=== PATIENT | female | born 1995 | race Caucasian/White ===

== ENCOUNTER 2017-09-12 16:49 | Emergency (ER) | payer OTHER ==
[2017-09-12 17:04] VITALS: BP 154/11
--- NOTE | 2017-09-12 17:18 | EDM.PDOC ---
ED HPI GENERAL MEDICAL PROBLEM - General Chief Complaint: Back Pain or Injury Stated Complaint: Low back pain Time Seen by Provider: 09/12/17 17:05 Source of Information: Reports: Patient, RN Notes Reviewed History Limitations: Reports: No Limitations - History of Present Illness INITIAL COMMENTS - FREE TEXT/NARRATIVE: 22 year old female presents to the ED with complaints of "excruciating" low back pain that radiates into her right leg. Symptoms started after she fell between a toilet and a wall at work today. She says she hit her back on the toilet seat and the wall. She has pain across her entire low back. She reports a history of a herniated disc and says this feels the same. She has no loss of bowel or bladder function. She denies possibility of and says she hasn 't been sexually active in several months. Declines test prior to diagnostics and medications. Lower Back Pain Score (Numeric/FACES): 10 - Related Data Allergies Allergy/AdvReac Type Severity Reaction Status Date / Time amoxicillin [Amoxicillin] Allergy Hives Verified 09/12/17 16:59 Home Meds: Home Meds Verapamil [Calan] 80 mg PO BEDTIME 06/15/15 [History] traZODone 100 mg PO BEDTIME 06/15/15 [History] oxyCODONE HCl/Acetaminophen [Oxycodone-Acetaminophen 5-325] 1 - 2 each PO Q6H PRN #15 tablet 09/12/17 [Rx] predniSONE [Prednisone] 40 mg PO DAILY #10 tablet 09/12/17 [Rx] Past Medical History - Past Health History Medical/Surgical History: Denies Medical/Surgical History Cardiovascular History: Reports: Hypertension Gastrointestinal History: Reports: Inflammatory Bowel Disease Musculoskeletal History: Reports: Fracture Psychiatric History: Reports: Anxiety, Depression Hematologic History: Reports: Anemia Dermatologic History: Reports: Eczema Social & Family History - Tobacco Use Smoking Status *Q: Never Smoker Second Hand Smoke Exposure: No - Caffeine Use Caffeine Use: Reports: None - Alcohol Use Days Per Week of Alcohol Use: 0 - Recreational Drug Use Recreational Drug Use: No Drug Use in Last 12 Months: Yes Recreational Drug Type: Reports: Marijuana/Hashish ED ROS GENERAL - Review of Systems Review Of Systems: See Below Musculoskeletal: Reports: Back Pain Skin: Reports: No Symptoms. Denies: Bruising, Wound ED EXAM,LOWER BACK PAIN/INJURY - Physical Exam Exam: See Below Exam Limited By: No Limitations General Appearance: Alert, WD/WN, No Apparent Distress Respiratory/Chest: No Respiratory Distress, Lungs Clear, Normal Breath Sounds Cardiovascular: Regular Rate, Rhythm Back Exam: Paraspinal Tenderness, Vertebral Tenderness, Other (patient complaints of excruciating pain even with light touch. Her areas of pain change throughout the exam. There is no bruising, redness, or swelling appreciated. ). No: Muscle Spasm Neurological: Alert, Normal Mood/Affect, Normal Dorsiflexion, Normal Plantar Flexion, No Motor/Sensory Deficits. No: Straight Leg Raise (L), Straight Leg Raise (R), Saddle Anesthesia, Difficulty Walking Skin Exam: Warm, Dry, Intact Course - Vital Signs Last Recorded V/S: Last Vital Signs Temp 97.1 F 09/12/17 17:00 Pulse 94 09/12/17 17:00 Resp 18 09/12/17 17:00 BP 154/11 H 09/12/17 17:00 Pulse Ox 100 09/12/17 17:00 - Orders/Labs/Meds Meds: Medications Discontinued Medications Generic Name Dose Route Start Last Admin Trade Name Freq PRN Reason Stop Dose Admin Ketorolac Tromethamine 60 mg 09/12/17 17:53 09/12/17 17:58 Toradol IM 09/12/17 17:54 60 mg ONETIME ONE Administration - Re-Assessments/Exams Free Text/Narrative Re-Assessment/Exam: CT of lumbar spine obtained, read by Dr. Hernandez. Impression: 1. disc herniations at L4-L5 and L5-S1. MRI could be considered. Causes slight central canal stenosis 2. Incidental schmorl node deformities Patient was notified of findings. Will start on prednisone and Percocet. Instructed to f/u with her PCP next week. Educated on return precautions. Departure - Departure Time of Disposition: 18:47 Disposition: Home, Self-Care 01 Condition: Good Clinical Impression: Lumbar herniated disc - Discharge Information Prescriptions: oxyCODONE HCl/Acetaminophen [Oxycodone-Acetaminophen 5-325] 1 - 2 each PO Q6H PRN #15 tablet PRN Reason: Pain predniSONE [Prednisone] 40 mg PO DAILY #10 tablet Referrals: Miya Victoria PA-C [Primary Care Provider] - Forms: ED Department Discharge Additional Instructions: Rest and ice your back No heavy lifting or bending until pain resolves Prednisone 40mg daily for 5 days Percocet 1-2 tabs every 6 hours as needed for pain May take Tylenol 650mg every 4-6 hours as needed for pain during the day Do not exceed 3000mg of Tylenol per day (Percocet contains 325mg of Tylenol) Follow-up with Miya Victoria next week for recheck Return to ER with any new or worsening symptoms
[2017-09-12] MEDS ORDERED: Ketorolac 60 MG/2 ML SDV IM ONE (17:53)
--- NOTE | 2017-09-12 18:20 | CT ---
CT lumbar spine Technique: Multiple axial sections were obtained multiple axial sections were obtained from slightly above the T11-T12 disc through the L5-S1 disc. Reconstructed sagittal and coronal images were reviewed. Comparison: No previous lumbar spine imaging is available. Findings: Scattered Schmorl node deformities are seen. T10-T11 through L3-L4: Scattered Schmorl node deformities are seen. Posterior disks are maintained. No central canal stenosis or neural foraminal stenosis is seen. L4-L5 disc shows a broad-based disc herniation posteriorly which slightly effaces the anterior thecal sac. This disc also shows a slight circumferential disc bulge. This causes minimal central canal stenosis. No neural foraminal stenosis is seen. L5-S1 disc shows a broad-based disc herniation or protrusion posteriorly also causing mild central canal stenosis. There is no neural foraminal stenosis being seen. No fracture is seen. No abnormal subluxation is seen. Impression: 1. Disc herniations at L4-L5 and L5-S1. MRI could be considered to better quantify these disc herniations if any intervention is planned. These disc herniations causes slight central canal stenosis. 2. Incidental Schmorl node deformities. 3. No additional abnormality is appreciated. Diagnostic code #3
== END 2017-09-12 19:04 | disposition home or self-care (01) ==
LOC: JD.ED 16:49
DX: M51.86 Other intervertebral disc disorders, lumbar region (principal); Z88.1 Allergy status to other antibiotic agents; Z79.899 Other long term (current) drug therapy
CPT/HCPCS: 72131; 96372; 99284; J1885

== ENCOUNTER 2018-01-30 05:17 | Emergency (ER) | payer OTHER ==
[2018-01-30 05:31] VITALS: BP 112/80
[2018-01-30] MEDS ORDERED: Ondansetron 4 MG/2 ML SDV IVPUSH ONE ×2 (05:49→06:39)
[2018-01-30] MEDS ORDERED: HYDROmorphone 0.5 MG/0.5 ML SYRINGE IVPUSH ONE ×2 (05:51→07:10)
--- NOTE | 2018-01-30 05:57 | EDM.PDOC ---
<Cj Carpenter - Last Filed: 01/30/18 06:45> ED HPI GENERAL MEDICAL PROBLEM - General Chief Complaint: Abdominal Pain Stated Complaint: ABDOMINAL PAIN LOWER RIGHT SIDE Time Seen by Provider: 01/30/18 05:35 Source of Information: Reports: Patient, Family (Mother) History Limitations: Reports: No Limitations - History of Present Illness INITIAL COMMENTS - FREE TEXT/NARRATIVE: The patient states that she developed sudden-onset sharp pain in her right flank and right lower quadrant around 03 100. The pain is constant and progressively worsening - everything makes the pain worse including movement, and stopping movement also makes the pain worse. Nothing makes the pain better. The patient vomited. No prior similar symptoms. No recent fever, constipation or diarrhea. No urinary symptoms. The patient started her menstrual period yesterday. The patient's last oral solid food was around 18:00 last night. The patient's PCP is Miya Victoria. Right Abdominal Pain Score (Numeric/FACES): 10 - Related Data Allergies Allergy/AdvReac Type Severity Reaction Status Date / Time amoxicillin [Amoxicillin] Allergy Hives Verified 01/30/18 05:25 Home Meds: Home Meds Verapamil [Calan] 80 mg PO BEDTIME 06/15/15 [History] traZODone 100 mg PO BEDTIME 06/15/15 [History] oxyCODONE HCl/Acetaminophen [Oxycodone-Acetaminophen 5-325] 1 - 2 each PO Q6H PRN #15 tablet 09/12/17 [Rx] predniSONE [Prednisone] 40 mg PO DAILY #10 tablet 09/12/17 [Rx] Ondansetron [Zofran] 4 mg BUCCAL Q6H PRN #5 tab 01/30/18 [Rx] oxyCODONE HCl/Acetaminophen [Percocet 5-325 mg Tablet] 1 - 2 each PO Q4H PRN # 20 tablet 01/30/18 [Rx] Past Medical History [employer] History: Reports: Polycystic Ovaries Musculoskeletal History: Reports: Fracture Psychiatric History: Reports: Anxiety, Depression Endocrine/Metabolic History: Reports: Obesity/BMI 30+ Social & Family History - Tobacco Use Smoking Status *Q: Never Smoker Second Hand Smoke Exposure: No - Caffeine Use Caffeine Use: Reports: None - Alcohol Use Alcohol Use History: Yes Days Per Week of Alcohol Use: 0 Alcohol Use Frequency: Rarely - Recreational Drug Use Recreational Drug Use: Yes Drug Use in Last 12 Months: Yes Recreational Drug Type: Reports: Marijuana/Hashish (last smoked Oct 2017) - Living Situation & Occupation Living situation: Reports: Single, Other (with friends) Occupation: Employed (Daycare) ED ROS GENERAL - Review of Systems Review Of Systems: ROS reveals no pertinent complaints other than HPI. ED EXAM, GENERAL - Physical Exam Exam: See Below Exam Limited By: No Limitations General Appearance: Alert, WD/WN, Moderate Distress (emotional) Eye Exam: Bilateral Eye: Normal Inspection Ears: Normal External Exam, Hearing Grossly Normal Nose: Normal Inspection, No Blood Throat/Mouth: Normal Inspection, Normal Lips, Normal Voice, No Airway Compromise Head: Atraumatic, Normocephalic Neck: Normal Inspection, Full Range of Motion Respiratory/Chest: No Respiratory Distress, Lungs Clear, Normal Breath Sounds, No Accessory Muscle Use Cardiovascular: Normal Peripheral Pulses, Regular Rate, Rhythm, No Gallop, No JVD, No Murmur, No Rub Peripheral Pulses: 4+: Radial (L), Radial (R) GI/Abdominal: Soft, No Organomegaly, No Distention, No Abnormal Bruit, No Mass, Tender (Unclear if tender to the far right abdomen, versus pain in the far right abdomen, but not tender), Abnormal Bowel Sounds (diminished), Other (Obese ) (Female) Exam: Deferred Rectal (Female) Exam: Deferred Back Exam: Normal Inspection, Full Range of Motion, CVA Tenderness (L) (Unclear if left CVAT, versus pain in the left flank, but not tender), CVA Tenderness (R ) (Unclear if right CVAT, versus pain in the right flank, but not tender) Extremities: Normal Inspection, Normal Range of Motion, No Pedal Edema, Normal Capillary Refill Neurological: Alert, Oriented, Normal Cognition, No Motor/Sensory Deficits Psychiatric: Anxious Skin Exam: Warm, Dry, Intact, Normal Color, No Rash Course - Vital Signs Last Recorded V/S: Last Vital Signs Temp 36.6 C 01/30/18 05:30 Pulse 70 01/30/18 05:30 Resp 18 01/30/18 05:30 BP 112/80 01/30/18 05:30 Pulse Ox 100 01/30/18 05:30 - Orders/Labs/Meds Orders: Active Orders 24 hr Category Date Time Status Sodium Chloride 0.9% [Normal Saline] 1,000 ml Med 01/30/18 06:00 Active IV ASDIRECTED Sodium Chloride 0.9% [Saline Flush] Med 01/30/18 07:44 Active 10 ml FLUSH ONETIME PRN Medication Orders Sodium Chloride (Normal Saline) 1,000 mls @ 150 mls/hr IV ASDIRECTED DAJA Last Admin: 01/30/18 05:58 Dose: 150 mls/hr Sodium Chloride (Saline Flush) 10 ml FLUSH ONETIME PRN PRN Reason: IV FLUSH Last Admin: 01/30/18 08:03 Dose: 10 ml Labs: Laboratory Tests 01/30/18 01/30/18 01/30/18 Range/Units 05:35 05:35 05:50 WBC 8.09 (3.98-10.04) K/mm3 RBC 4.54 (3.98-5.22) M/mm3 Hgb 10.3 L (11.2-15.7) gm/L Hct 33.5 L (34.1-44.9) % MCV 73.8 L (79.4-94.8) fl MCH 22.7 L (25.6-32.2) pg MCHC 30.7 L (32.2-35.5) g/dl RDW Std Deviation 47.0 H (36.4-46.3) fL Plt Count 255 (182-369) K/mm3 MPV 12.2 (9.4-12.3) fl Neutrophils % (Manual) 68 H (40-60) % Band Neutrophils % 0 (0-10) % Lymphocytes % (Manual) 28 (20-40) % Atypical Lymphs % 0 % Monocytes % (Manual) 2 (2-10) % Eosinophils % (Manual) 2 (0.7-5.8) % Basophils % (Manual) 0 L (0.1-1.2) Platelet Estimate Adequate Hypochromasia Moderate RBC Morph Comment Not Reportable Sodium 137 (136-145) mEq/L Potassium 3.7 (3.5-5.1) mEq/L Chloride 103 (98-107) mEq/L Carbon Dioxide 21 (21-32) mEq/L Anion Gap 16.7 H (5-15) BUN 11 (7-18) mg/dL Creatinine 0.9 (0.55-1.02) mg/dL Est Cr Clr Drug Dosing 86.10 mL/min Estimated GFR (MDRD) > 60 (>60) mL/min BUN/Creatinine Ratio 12.2 L (14-18) Glucose 121 H (74-106) mg/dL Calcium 8.4 L (8.5-10.1) mg/dL Total Bilirubin 0.3 (0.2-1.0) mg/dL AST 38 H (15-37) U/L ALT 61 H (14-59) U/L Alkaline Phosphatase 65 (46-116) U/L Total Protein 7.5 (6.4-8.2) g/dl Albumin 3.3 L (3.4-5.0) g/dl Globulin 4.2 gm/dL Albumin/Globulin Ratio 0.8 L (1-2) Lipase 184 (73-393) U/L Urine Color Yellow (Yellow) Urine Appearance Slt cloudy H (Clear) Urine pH 6.0 (5.0-8.0) Ur Specific [place] > or = 1.030 (1.005-1.030) Urine Protein Trace H (Negative) Urine Glucose (UA) Negative (Negative) Urine Ketones Negative (Negative) Urine Occult Blood 2+ H (Negative) Urine Nitrite Negative (Negative) Urine Bilirubin Negative (Negative) Urine Urobilinogen 0.2 (0.2-1.0) Ur Leukocyte Esterase Negative (Negative) Urine RBC 0-5 (0-5) /hpf Urine WBC 0-5 (0-5) /hpf Ur Epithelial Cells Not seen (0-5) /hpf Urine Bacteria Few (FEW) /hpf Fine Granular Casts 0-5 (0-5) /lpf Urine Mucus Moderate H (FEW) /hpf Urine HCG, Qual (NEGATIVE) 01/30/18 Range/Units 06:20 WBC (3.98-10.04) K/mm3 RBC (3.98-5.22) M/mm3 Hgb (11.2-15.7) gm/L Hct (34.1-44.9) % MCV (79.4-94.8) fl MCH (25.6-32.2) pg MCHC (32.2-35.5) g/dl RDW Std Deviation (36.4-46.3) fL Plt Count (182-369) K/mm3 MPV (9.4-12.3) fl Neutrophils % (Manual) (40-60) % Band Neutrophils % (0-10) % Lymphocytes % (Manual) (20-40) % Atypical Lymphs % % Monocytes % (Manual) (2-10) % Eosinophils % (Manual) (0.7-5.8) % Basophils % (Manual) (0.1-1.2) Platelet Estimate Hypochromasia RBC Morph Comment Sodium (136-145) mEq/L Potassium (3.5-5.1) mEq/L Chloride (98-107) mEq/L Carbon Dioxide (21-32) mEq/L Anion Gap (5-15) BUN (7-18) mg/dL Creatinine (0.55-1.02) mg/dL Est Cr Clr Drug Dosing mL/min Estimated GFR (MDRD) (>60) mL/min BUN/Creatinine Ratio (14-18) Glucose (74-106) mg/dL Calcium (8.5-10.1) mg/dL Total Bilirubin (0.2-1.0) mg/dL AST (15-37) U/L ALT (14-59) U/L Alkaline Phosphatase (46-116) U/L Total Protein (6.4-8.2) g/dl Albumin (3.4-5.0) g/dl Globulin gm/dL Albumin/Globulin Ratio (1-2) Lipase (73-393) U/L Urine Color (Yellow) Urine Appearance (Clear) Urine pH (5.0-8.0) Ur Specific [place] (1.005-1.030) Urine Protein (Negative) Urine Glucose (UA) (Negative) Urine Ketones (Negative) Urine Occult Blood (Negative) Urine Nitrite (Negative) Urine Bilirubin (Negative) Urine Urobilinogen (0.2-1.0) Ur Leukocyte Esterase (Negative) Urine RBC (0-5) /hpf Urine WBC (0-5) /hpf Ur Epithelial Cells (0-5) /hpf Urine Bacteria (FEW) /hpf Fine Granular Casts (0-5) /lpf Urine Mucus (FEW) /hpf Urine HCG, Qual Negative (NEGATIVE) Meds: Medications Generic Name Dose Route Start Last Admin Trade Name Freq PRN Reason Stop Dose Admin Sodium Chloride 1,000 mls @ 150 mls/hr 01/30/18 06:00 01/30/18 05:58 Normal Saline IV 150 mls/hr ASDIRECTED DAJA Administration Sodium Chloride 10 ml 01/30/18 07:44 01/30/18 08:03 Saline Flush FLUSH 10 ml ONETIME PRN Administration IV FLUSH Discontinued Medications Generic Name Dose Route Start Last Admin Trade Name Freq PRN Reason Stop Dose Admin Diatrizoate Meglum/Diatrizoate Sod 90 ml 01/30/18 07:43 01/30/18 08:02 Gastrografin 37% PO 01/30/18 07:44 90 ml ONETIME ONE Administration Diphenhydramine HCl 25 mg 01/30/18 08:41 01/30/18 08:48 Benadryl IVPUSH 01/30/18 08:42 25 mg ONETIME ONE Administration Fentanyl 50 mcg 01/30/18 08:42 01/30/18 08:48 Sublimaze IVPUSH 01/30/18 08:43 50 mcg ONETIME ONE Administration Hydromorphone HCl 0.5 mg 01/30/18 05:51 01/30/18 05:59 Dilaudid IVPUSH 01/30/18 05:52 0.5 mg ONETIME ONE Administration Hydromorphone HCl 1 mg 01/30/18 07:10 01/30/18 07:16 Dilaudid IVPUSH 01/30/18 07:11 1 mg ONETIME ONE Administration Iopamidol 125 ml 01/30/18 07:43 01/30/18 08:02 Isovue-300 (61%) IVPUSH 01/30/18 07:44 125 ml ONETIME ONE Administration Metoclopramide HCl 10 mg 01/30/18 08:42 01/30/18 08:49 Reglan IVPUSH 01/30/18 08:43 10 mg ONETIME ONE Administration Ondansetron HCl 4 mg 01/30/18 05:49 01/30/18 05:59 Zofran IVPUSH 01/30/18 05:50 4 mg ONETIME ONE Administration Ondansetron HCl 4 mg 01/30/18 06:39 01/30/18 06:45 Zofran IVPUSH 01/30/18 06:40 4 mg ONETIME ONE Administration - Re-Assessments/Exams Free Text/Narrative Re-Assessment/Exam: 01/30/18 06:00 Difficult exam. Initially, the patient could only talk to me in whispers, and the patient's mother answered most of my questions, including those related to things that only the patient could say, such as the character of the pain. The patient's mother literally explained to me how the patient's pain would rise, then never receed. On examination, the patient has decreased bowel sounds, and while she indicated that her pain was primarily to the far right side of her abdomen, she also indicated that she was tender when I was palpating as far away as her left upper quadrant. When asked for clarification, she then said that it was not tender to the left side of her abdomen, suprapubic region, or central abdomen. She appears to be tender in the right lower quadrant, far right side of the abdomen, and right upper quadrant, but when I asked specifically if she was tender in these areas versus having pain in those areas without tenderness, she replied "jocy". The same was for examination of her flanks - she indicated that she had both left and right CVA tenderness, but was not able to clarify for me if she actually had tenderness, versus non-tender pain in these areas. The differential includes ureterolithiasis, ruptured ovarian cyst, appendicitis , epiploic appendigitis, mesenteric adenitis, and, potentially, cholecystitis. I have ordered blood work, a urinalysis via quick catheter, and a CT scan of the abdomen and pelvis. The patient asked if it would be possible that she not drink the oral contrast, as it was "gross", however, I explained that it was necessary, and that I would give her an antiemetic. I ordered Dilaudid, Zofran, and IV fluid. 01/30/18 07:[address] Traore, and care of the patient turned over to him at this time, for change of shift. Departure - Departure Disposition: Home, Self-Care 01 Clinical Impression: Renal colic on right side - Discharge Information Prescriptions: Ondansetron [Zofran] 4 mg BUCCAL Q6H PRN #5 tab PRN Reason: nausea or vomiting oxyCODONE HCl/Acetaminophen [Percocet 5-325 mg Tablet] 1 - 2 each PO Q4H PRN # 20 tablet PRN Reason: pain relief. Instructions: Renal Colic, [id number] Referrals: Miya Victoria PA-C [Primary Care Provider] - Forms: ED Department Discharge Additional Instructions: Evaluation the emergency room this morning in regards to development of severe right sided abdominal pain. Associated feeling of need to vomit. Urinalysis showed 2+ blood in the urine. In spite of current menses a CT of the abdomen was performed with IV contrast. This revealed a 2 mm stone at the lower portion of your right ureter. The stone has a proximal be 1 cm travel to get into the urinary bladder which time her pain will be completely relieved. Screen the urine until stone is identified to the past. Is likely to occur within the next 48 hours. Drink plenty of fluids. No calcium added diet. May take Percocet tabs 04/03/25 one or 2 every 4-6 hours as needed for pain relief. Zofran 4 mg under the tongue every 4-6 hours as needed for nausea relief. If you continue to vomit or have further pain then returned to the ED. <Julius Traore - Last Filed: 01/30/18 15:17> Course - Re-Assessments/Exams Free Text/Narrative Re-Assessment/Exam: 01/30/18 07:[address] Carpenter at change of shift. Labs reveal a white count of 8.09 with 60% neutrophils and no bands reported. Hemoglobin is low at 10.3 with hematocrit of 33.5. MCV is low at 73.8 suggesting iron deficiency. Chemistry shows sodium of 137 potassium 3.7. Cord 103 with a bicarbonate 21. Anion gap is 16.7. BUN is 11 with creatinine of 0.9. GFR is greater than 60. Glucose is 121. Calcium is 8.4. Liver function reveals a bilirubin of 0.3 AST of 38 ALT of 61. Alk phosphatase is 65. Lipase is 184. Urinalysis is showing 2+ occult blood but no RBCs on the micro-. No signs of infection. Moderate amount of urine mucus appreciated. Patient is expressing more pain at this time and just started to drink or oral contrast. We will give her Dilaudid 1 mg IV. 01/30/18 08:40 CT of the abdomen and pelvis has been completed. It does identify 2 mm stone at the UVJ on the right side. Ureter is mildly dilated up to the ureter renal pelvis. The kidney itself is showing some mild signs of hydronephrosis. No other abdomen maladies were identified of the fatty liver infiltration. Patient is currently expressing still a fair amount of nausea and pain. Will give her Reglan 10 mg IV and Benadryl 25 mg IV and fentanyl 50 g IV. 01/30/18 09:31 patient is feeling much improved although she remains somewhat drowsy from the medication. She's no longer nauseated has very little discomfort. She was discharged home whenever her mom can come and pick her up. She will screen the urine in the hopes of catching the stone so that she knows that she passed it. Advise a no calcium added diet. - Departure Time of Disposition: 11:00 Condition: Fair
[2018-01-30] MEDS ORDERED: Sodium Chloride 0.9% 1,000 ML IV SCH (06:00)
[2018-01-30] MEDS ORDERED: Diatrizoate Meglumine/Diatrizoate Sodium 37% 120 ML Bottle PO ONE (07:43)
[2018-01-30] MEDS ORDERED: Iopamidol 612 MG/ML 150 ML Bottle IVPUSH ONE (07:43)
[2018-01-30] MEDS ORDERED: Sodium Chloride 0.9% 10 ML Syringe FLUSH PRN (07:44)
--- NOTE | 2018-01-30 08:32 | CT ---
CT abdomen and pelvis Technique: Multiple axial sections were obtained from above the dome of the diaphragm inferiorly through the pubic symphysis. Intravenous contrast was utilized. Minimal oral contrast is seen. Findings: Diminished enhancement of the right kidney is seen as compared to the left side. Slight inflammatory change is seen around the right kidney. Right ureter is minimally prominent in size. There is a small 2 mm calcification at the UVJ suspicious for an obstructing distal right ureteral stone. Visualized lung bases are clear. Fatty infiltration noted within the liver. Gallbladder contains no calcified gallstones. Spleen appears within normal limits. Pancreas appears normal. Aorta shows no aneurysmal dilatation. Gallbladder contains no calcified gallstones. No retroperitoneal adenopathy or mesenteric abnormalities are seen. Appendix is seen which appears normal. No pelvic mass or adenopathy is seen. No free fluid is seen. Bone window settings were reviewed which appears within normal limits for the patient's age. Impression: 1. Abnormal right kidney with what appears to be a small 2 mm calcification at the UVJ suspicious for distal right ureteral obstructing stone. 2. Fatty infiltration within the liver. Diagnostic code #3
[2018-01-30] MEDS ORDERED: diphenhydrAMINE 50 MG/ML SDV IVPUSH ONE (08:41)
[2018-01-30] MEDS ORDERED: fentaNYL 100 MCG/2 ML SDV IVPUSH ONE (08:42)
[2018-01-30] MEDS ORDERED: Metoclopramide 10 MG/2 ML SDV IVPUSH ONE (08:42)
== END 2018-01-30 11:32 | disposition home or self-care (01) ==
LOC: JD.ED 05:17
DX: N23 Unspecified renal colic (principal); E66.9 Obesity, unspecified; Z88.1 Allergy status to other antibiotic agents; Z79.899 Other long term (current) drug therapy
CPT/HCPCS: 36415; 74177; 80053; 81001; 81025; 83690; 85025; 96361; 96374; 96375; 96376; 99284; J1170; J1200; J2405; J2765; J3010; J7040; J7050; Q9963; Q9967

== ENCOUNTER 2018-12-20 12:35 | Emergency (ER) | payer SELFPAY ==
[2018-12-20 12:56] VITALS: BP 146/91
[2018-12-20] MEDS ORDERED: Sodium Chloride 0.9% 1,000 ML IV ONE (13:33)
[2018-12-20] MEDS ORDERED: Sodium Chloride 0.9% 10 ML Syringe FLUSH PRN (13:33)
--- NOTE | 2018-12-20 13:36 | EDM.PDOC ---
ED HPI GENERAL MEDICAL PROBLEM - General Chief Complaint: Abdominal Pain Stated Complaint: ABDOMINAL PAIN - 10 WKS PG Time Seen by Provider: 12/20/18 13:12 Source of Information: Reports: Patient History Limitations: Reports: No Limitations - History of Present Illness INITIAL COMMENTS - FREE TEXT/NARRATIVE: Patient is a 23-year-old female presents ED complaining of generalized abdominal discomfort. Pain has been present since last . Off-and-on with no obvious cause. Pain is described as crampy sensation sharp in nature that comes and goes. She does has a history of IBS and notes that her stool has been hard with episodes of diarrhea with some straining present. She's had prior symptoms as such. In addition she has a history of kidney stones in the past 1 with no similar symptoms as today. She has been eating and drinking as normal. She is 10 weeks and has been evaluated by [employer] specialist with no concerning findings. No ultrasound has been obtained as of yet. She denies any fever, dysuria, dark tarry stools, bloody stools, hematuria, nausea vomiting, recent sick exposures, recent antibiotic use, ingestion of questionable or bad food, or recent out of country travel. She has also noted some increased flatulence which does relieve some of her discomfort. There has been no acid reflux. She has approximately 5 BMs daily. Additional history includes PCOS, fatty liver disease, anxiety and depression. She is currently on no medications except for vitamins. Surgical history includes EGD and colonoscopy with no concerning findings. Abdominal Pain Score (Numeric/FACES): 7 - Related Data Allergies Allergy/AdvReac Type Severity Reaction Status Date / Time amoxicillin [Amoxicillin] Allergy Hives Verified 12/20/18 12:56 Home Meds: Home Meds . [No Known Home Meds] 12/20/18 [History] Past Medical History - Past Health History Medical/Surgical History: Denies Medical/Surgical History Cardiovascular History: Reports: Hypertension Gastrointestinal History: Reports: Inflammatory Bowel Disease PATENT PROSECUTION PARALEGAL History: Reports: Polycystic Ovaries, Musculoskeletal History: Reports: Fracture Psychiatric History: Reports: Anxiety, Depression Endocrine/Metabolic History: Reports: Obesity/BMI 30+ Hematologic History: Reports: Anemia Dermatologic History: Reports: Eczema - Past Surgical History GI Surgical History: Reports: Colonoscopy Social & Family History - Tobacco Use Smoking Status *Q: Never Smoker - Caffeine Use Caffeine Use: Reports: None - Recreational Drug Use Recreational Drug Use: No - Living Situation & Occupation Living situation: Reports: Single, Other (with friends) Occupation: Employed (Daycare) ED ROS GENERAL - Review of Systems Review Of Systems: ROS reveals no pertinent complaints other than HPI. ED EXAM - Physical Exam Exam: See Below Exam Limited By: No Limitations General Appearance: Alert, WD/WN, No Apparent Distress Ears: Hearing Grossly Normal Nose: Normal Inspection Throat/Mouth: Normal Voice, No Airway Compromise Neck: Normal Inspection, Supple Respiratory/Chest: No Respiratory Distress, Lungs Clear, Normal Breath Sounds, No Accessory Muscle Use, Chest Non-Tender Cardiovascular: Normal Peripheral Pulses, Regular Rate, Rhythm, No Murmur GI/Abdominal Exam: Normal Bowel Sounds, Soft, No Organomegaly, No Distention, Tender (generalized discomfort) Back Exam: Normal Inspection. No: CVA Tenderness (L), CVA Tenderness (R) Neurological: Alert, Oriented, CN II-XII Intact, Normal Cognition, No Motor/ Sensory Deficits Psychiatric: Normal Affect, Normal Mood Skin Exam: Warm, Dry, Intact, Normal Color, No Rash Course - Vital Signs Last Recorded V/S: Last Vital Signs Temp 98.7 F 12/20/18 12:53 Pulse 107 H 12/20/18 12:53 Resp 16 12/20/18 12:53 BP 146/91 H 12/20/18 12:53 Pulse Ox 99 12/20/18 12:53 - Orders/Labs/Meds Orders: Active Orders 24 hr Category Date Time Status Peripheral IV Care [RC] . DIRECTED Care 12/20/18 13:33 Active Peripheral IV Insertion Adult [OM.PC] Routine Oth 12/20/18 13:33 Ordered Labs: Laboratory Tests 12/20/18 12/20/18 12/20/18 Range/Units 13:55 13:55 13:55 WBC 12.79 H (3.98-10.04) K/mm3 RBC 4.86 (3.98-5.22) M/mm3 Hgb 10.9 L (11.2-15.7) gm/L Hct 35.0 (34.1-44.9) % MCV 72.0 L (79.4-94.8) fl MCH 22.4 L (25.6-32.2) pg MCHC 31.1 L (32.2-35.5) g/dl RDW Std Deviation 47.9 H (36.4-46.3) fL Plt Count 275 (182-369) K/mm3 MPV 12.3 (9.4-12.3) fl Neutrophils % (Manual) 88 H (40-60) % Band Neutrophils % 0 (0-10) % Lymphocytes % (Manual) 8 L (20-40) % Atypical Lymphs % 0 % Monocytes % (Manual) 4 (2-10) % Eosinophils % (Manual) 0 L (0.7-5.8) % Basophils % (Manual) 0 L (0.1-1.2) Platelet Estimate Adequate Plt Morphology Comment See note Anisocytosis 1+ slight Microcytosis 1+ slight RBC Morph Comment Not Reportable Sodium 139 (136-145) mEq/L Potassium 3.6 (3.5-5.1) mEq/L Chloride 104 (98-107) mEq/L Carbon Dioxide 24 (21-32) mEq/L Anion Gap 14.6 (5-15) BUN 10 (7-18) mg/dL Creatinine 0.7 (0.55-1.02) mg/dL Est Cr Clr Drug Dosing 109.78 mL/min Estimated GFR (MDRD) > 60 (>60) mL/min BUN/Creatinine Ratio 14.3 (14-18) Glucose 106 (74-106) mg/dL Calcium 9.6 (8.5-10.1) mg/dL Total Bilirubin 0.3 (0.2-1.0) mg/dL AST 16 (15-37) U/L ALT 24 (14-59) U/L Alkaline Phosphatase 67 (46-116) U/L C-Reactive Protein 1.8 H* (<1.0) mg/dL Total Protein 7.7 (6.4-8.2) g/dl Albumin 3.2 L (3.4-5.0) g/dl Globulin 4.5 gm/dL Albumin/Globulin Ratio 0.7 L (1-2) Lipase 127 (73-393) U/L HCG, Quant 89684.0 mIU/mL Urine Color (Yellow) Urine Appearance (Clear) Urine pH (5.0-8.0) Ur Specific [place] (1.005-1.030) Urine Protein (Negative) Urine Glucose (UA) (Negative) Urine Ketones (Negative) Urine Occult Blood (Negative) Urine Nitrite (Negative) Urine Bilirubin (Negative) Urine Urobilinogen (0.2-1.0) Ur Leukocyte Esterase (Negative) Urine RBC (0-5) /hpf Urine WBC (0-5) /hpf Ur Epithelial Cells (0-5) /hpf Urine Bacteria (FEW) /hpf Urine Mucus (FEW) /hpf 12/20/18 Range/Units 14:55 WBC (3.98-10.04) K/mm3 RBC (3.98-5.22) M/mm3 Hgb (11.2-15.7) gm/L Hct (34.1-44.9) % MCV (79.4-94.8) fl MCH (25.6-32.2) pg MCHC (32.2-35.5) g/dl RDW Std Deviation (36.4-46.3) fL Plt Count (182-369) K/mm3 MPV (9.4-12.3) fl Neutrophils % (Manual) (40-60) % Band Neutrophils % (0-10) % Lymphocytes % (Manual) (20-40) % Atypical Lymphs % % Monocytes % (Manual) (2-10) % Eosinophils % (Manual) (0.7-5.8) % Basophils % (Manual) (0.1-1.2) Platelet Estimate Plt Morphology Comment Anisocytosis Microcytosis RBC Morph Comment Sodium (136-145) mEq/L Potassium (3.5-5.1) mEq/L Chloride (98-107) mEq/L Carbon Dioxide (21-32) mEq/L Anion Gap (5-15) BUN (7-18) mg/dL Creatinine (0.55-1.02) mg/dL Est Cr Clr Drug Dosing mL/min Estimated GFR (MDRD) (>60) mL/min BUN/Creatinine Ratio (14-18) Glucose (74-106) mg/dL Calcium (8.5-10.1) mg/dL Total Bilirubin (0.2-1.0) mg/dL AST (15-37) U/L ALT (14-59) U/L Alkaline Phosphatase (46-116) U/L C-Reactive Protein (<1.0) mg/dL Total Protein (6.4-8.2) g/dl Albumin (3.4-5.0) g/dl Globulin gm/dL Albumin/Globulin Ratio (1-2) Lipase (73-393) U/L HCG, Quant mIU/mL Urine Color Yellow (Yellow) Urine Appearance Slt cloudy H (Clear) Urine pH 7.0 (5.0-8.0) Ur Specific [place] 1.020 (1.005-1.030) Urine Protein Negative (Negative) Urine Glucose (UA) Negative (Negative) Urine Ketones Negative (Negative) Urine Occult Blood Negative (Negative) Urine Nitrite Negative (Negative) Urine Bilirubin Negative (Negative) Urine Urobilinogen 0.2 (0.2-1.0) Ur Leukocyte Esterase Trace H (Negative) Urine RBC 0-5 (0-5) /hpf Urine WBC 5-10 H (0-5) /hpf Ur Epithelial Cells 20-30 H (0-5) /hpf Urine Bacteria Few (FEW) /hpf Urine Mucus Many H (FEW) /hpf Meds: Medications Discontinued Medications Generic Name Dose Route Start Last Admin Trade Name Freq PRN Reason Stop Dose Admin Sodium Chloride 1,000 mls @ 250 mls/hr 12/20/18 13:33 12/20/18 13:57 Normal Saline IV 12/20/18 17:32 250 mls/hr ONETIME ONE Administration Sodium Chloride 10 ml 12/20/18 13:33 12/20/18 13:55 Saline Flush FLUSH 10 ml ASDIRECTED PRN Administration Keep Vein Open - Re-Assessments/Exams Free Text/Narrative Re-Assessment/Exam: Labs reviewed: White blood cell count 12.79, hemoglobin 10.9 which is low chronic, platelet count 275, MCV is 72, neutrophil percentage is elevated at 88 with no bands, sodium and potassium normal, CO2 normal, AG normal, creatinine normal, glucose normal limits, CRP 1.8, lipase normal, hCG 72,704. Unclear cause of anemia. Suspect iron deficiency. Ultrasound indicated single intrauterine gestation. No complicating process is seen by ultrasound at this point. Patient did not have a positive Leal sign and/or pain along the McBurney's point. I suspect this is related to constipation with her history of stool pattern changes and history of IBS. Treatment will consist of MiraLAX one capful every day with copious amounts of water. Increase fiber in her diet. Follow-up with PCP this coming week for reevaluation. She was instructed to return back to the ED if she develops any new or worsening symptoms. I suspect the cause of her worsening constipation is as of result of being , diet , and vitamins. Departure - Departure Time of Disposition: 15:45 Disposition: DC[facility] 05 Condition: Good Clinical Impression: Generalized abdominal pain, 10 weeks gestation of Constipation Qualifiers: Constipation type: unspecified constipation type Qualified Code(s): K59.00 - Constipation, unspecified IBS (irritable bowel syndrome) Qualifiers: Irritable bowel syndrome type: with both diarrhea and constipation Qualified Code(s): K58.2 - Mixed irritable bowel syndrome - Discharge Information Instructions: High-Fiber Diet, Constipation, Adult, [id number], Diet for Irritable Bowel Syndrome, Abdominal Pain, Adult, [id number], Abdominal Pain During , Probiotics Referrals: Lucy Waller MD [Primary Care Provider] - Forms: ED Department Discharge Additional Instructions: Do not have a exact cause to its causing your on and off abdominal cramping. I suspect it's a combination of IBS, constipation, and being . Thus treatment will consist of MiraLAX one capful every day, increase fiber in her diet, exercise at least 5 days a week and 30 minutes in duration moderate, and drink plenty of water. Please follow up with your PCP's or [facility] specialist this coming week for further evaluation if symptoms persist. Ultrasound of the abdomen did reveal a single uterine to her uterine gestation with a heart rate of 183. Please monitor for any new or worsening symptoms. If so please return back to the ED for further evaluation. - My Orders Last 24 Hours: My Active Orders 12/20/18 13:33 Peripheral IV Care [RC] . DIRECTED Peripheral IV Insertion Adult [OM.PC] Routine - Assessment/Plan Last 24 Hours: My Active Orders 12/20/18 13:33 Peripheral IV Care [RC] . DIRECTED Peripheral IV Insertion Adult [OM.PC] Routine
--- NOTE | 2018-12-20 14:57 | US ---
First trimester obstetrical ultrasound: Multiple real-time images were obtained transvaginally. Comparison: No prior obstetrical ultrasound for current is available. Dates: LMP: LMP given as 10/12/18, PAMELA 07/19/19, gestational age 9 weeks 6 days Current ultrasound: PAMELA 07/17/19, gestational age 10 weeks 1 day Single intrauterine gestation is seen. Amniotic fluid volume is normal. Embryo is identified. No subchorionic hemorrhage is seen. Maternal ovaries appear unremarkable. Measurements: Kaleva-rump length: 3.27 cm - 10 weeks 1 day Heart rate: 183 bpm Impression: 1. Single intrauterine gestation. Dates as noted above. 2. No complicating process is seen by ultrasound at this time. Diagnostic code #1
== END 2018-12-20 16:07 | disposition home or self-care (01) ==
LOC: JD.ED 12:35
DX: O99.611 Diseases of the digestive system complicating pregnancy, first trimester (principal); K58.2 Mixed irritable bowel syndrome; K59.00 Constipation, unspecified; Z3A.10 10 weeks gestation of pregnancy; I10 Essential (primary) hypertension; Z88.1 Allergy status to other antibiotic agents
CPT/HCPCS: 36415; 76817; 80053; 81001; 83690; 84702; 85007; 85027; 86140; 96360; 96361; 99284; J7040

== ENCOUNTER 2019-12-09 19:27 | Emergency (ER) | payer MEDICAID ==
[2019-12-09 19:38] VITALS: BP 132/71; PULSE 86
--- NOTE | 2019-12-09 20:19 | EDM.PDOC ---
ED HPI GENERAL MEDICAL PROBLEM - General Chief Complaint: Abdominal Pain Stated Complaint: SHORT OF BREATH Time Seen by Provider: 12/09/19 20:18 - History of Present Illness INITIAL COMMENTS - FREE TEXT/NARRATIVE: 24-year-old female presents to the emergency room with abdominal pain and shortness of breath. This started about 3 days ago but progressively got worse today. Her pain is worse in the upper right abdomen radiates to her shoulder blade. And it hurts for her to take a deep breath in. She has some stomach upset with this but cannot clearly say that eating makes this worse. She has some intermittent reflux symptoms. She has not had any fevers or chills. She still has her gallbladder. Right Upper Abdomen Pain Score (Numeric/FACES): 10 - Related Data Allergies Allergy/AdvReac Type Severity Reaction Status Date / Time amoxicillin [Amoxicillin] Allergy Hives Verified 12/09/19 19:38 Home Meds: Home Meds Citalopram Hydrobromide [Celexa] 10 mg PO DAILY 05/28/19 [History] Multivitamin [Flintstones] 1 each PO DAILY 05/28/19 [History] Ibuprofen [Motrin] 600 mg PO Q6H PRN tablet 07/03/19 [Rx] Acetaminophen/HYDROcodone [[place] 325-5 MG] 1 tab PO Q4H PRN #15 tablet 12/09/19 [Rx] Lansoprazole [Prevacid] 30 mg PO ASDIRECTED #15 tab.rap.dr 12/09/19 [Rx] Ondansetron [Zofran ODT] 4 mg PO Q6H PRN #10 tab.dis 12/09/19 [Rx] Past Medical History - Past Health History Medical/Surgical History: Denies Medical/Surgical History Cardiovascular History: Reports: Hypertension Gastrointestinal History: Reports: Inflammatory Bowel Disease Genitourinary History: Reports: Renal Calculus [employer] WORK[employer] History: Reports: Polycystic Ovaries, Musculoskeletal History: Reports: Fracture Psychiatric History: Reports: Anxiety, Depression Endocrine/Metabolic History: Reports: Obesity/BMI 30+ Hematologic History: Reports: Anemia Dermatologic History: Reports: Eczema - Past Surgical History GI Surgical History: Reports: Colonoscopy Social & Family History - Family History Family Medical History: Noncontributory - Tobacco Use Smoking Status *Q: Never Smoker Second Hand Smoke Exposure: No - Caffeine Use Caffeine Use: Reports: Coffee, Soda - Recreational Drug Use Recreational Drug Use: No - Living Situation & Occupation Living situation: Reports: Single, Other (with friends) Occupation: Employed (Daycare) ED ROS GENERAL - Review of Systems Review Of Systems: See Below Constitutional: Reports: No Symptoms HEENT: Reports: No Symptoms Respiratory: Reports: Shortness of Breath (Some pain that radiates to her chest to her scapula.) Endocrine: Reports: No Symptoms GI/Abdominal: Reports: Abdominal Pain, Nausea, Vomiting. Denies: Constipation, Diarrhea : Reports: No Symptoms Musculoskeletal: Reports: No Symptoms Skin: Reports: No Symptoms Neurological: Reports: No Symptoms ED EXAM, GI/ABD - Physical Exam Exam: See Below Exam Limited By: No Limitations General Appearance: Alert, No Apparent Distress Head: Atraumatic, Normocephalic Neck: Normal Inspection, Supple, Non-Tender, Full Range of Motion Respiratory/Chest: No Respiratory Distress, Lungs Clear, Normal Breath Sounds Cardiovascular: Regular Rate, Rhythm, No Edema, No Murmur GI/Abdominal Exam: Normal Bowel Sounds, Soft, Other (Patient has significant right upper quadrant discomfort to a slightly lesser degree has significant epigastric discomfort she has some left upper quadrant discomfort but this is fairly mild. No lower abdominal discomfort no rigidity rebound or guarding noted.) Back Exam: Normal Inspection. No: CVA Tenderness (L), CVA Tenderness (R) Course - Vital Signs Last Recorded V/S: Last Vital Signs Temp 36.0 C 12/09/19 19:34 Pulse 86 12/09/19 19:34 Resp 22 H 12/09/19 19:34 BP 132/71 12/09/19 19:34 Pulse Ox 100 12/09/19 19:34 - Orders/Labs/Meds Labs: Laboratory Tests 12/09/19 12/09/19 12/09/19 Range/Units 20:55 21:00 21:00 WBC 11.92 H (3.98-10.04) K/mm3 RBC 5.26 H (3.98-5.22) M/mm3 Hgb 14.3 D (11.2-15.7) gm/dl Hct 44.0 (34.1-44.9) % MCV 83.7 D (79.4-94.8) fl MCH 27.2 (25.6-32.2) pg MCHC 32.5 (32.2-35.5) g/dl RDW Std Deviation 44.3 (36.4-46.3) fL Plt Count 258 D (182-369) K/mm3 MPV 11.7 (9.4-12.3) fl Neut % (Auto) 65.1 (34.0-71.1) % Lymph % (Auto) 25.1 (19.3-51.7) % Baxter % (Auto) 8.0 (4.7-12.5) % Eos % (Auto) 1.1 (0.7-5.8) Baso % (Auto) 0.4 (0.1-1.2) % Neut # (Auto) 7.76 H (1.56-6.13) K/mm3 Lymph # (Auto) 2.99 (1.18-3.74) K/mm3 Baxter # (Auto) 0.95 H (0.24-0.36) K/mm3 Eos # (Auto) 0.13 (0.04-0.36) K/mm3 Baso # (Auto) 0.05 (0.01-0.08) K/mm3 Manual Slide Review Normal smear Sodium 142 (136-145) mEq/L Potassium 3.8 (3.5-5.1) mEq/L Chloride 105 (98-107) mEq/L Carbon Dioxide 25 (21-32) mEq/L Anion Gap 15.8 H (5-15) BUN 11 (7-18) mg/dL Creatinine 0.8 (0.55-1.02) mg/dL Est Cr Clr Drug Dosing 95.25 mL/min Estimated GFR (MDRD) > 60 (>60) mL/min BUN/Creatinine Ratio 13.8 L (14-18) Glucose 90 (74-106) mg/dL Calcium 9.2 (8.5-10.1) mg/dL Total Bilirubin 0.4 (0.2-1.0) mg/dL AST 71 H (15-37) U/L ALT 131 H (14-59) U/L Alkaline Phosphatase 74 (46-116) U/L Total Protein 8.7 H (6.4-8.2) g/dl Albumin 4.0 (3.4-5.0) g/dl Globulin 4.7 gm/dL Albumin/Globulin Ratio 0.9 L (1-2) Lipase 206 (73-393) U/L HCG, Qual (NEGATIVE) Urine Color Yellow (Yellow) Urine Appearance Clear (Clear) Urine pH 6.0 (5.0-8.0) Ur Specific [place] 1.025 (1.005-1.030) Urine Protein Negative (Negative) Urine Glucose (UA) Negative (Negative) Urine Ketones Negative (Negative) Urine Occult Blood 1+ H (Negative) Urine Nitrite Negative (Negative) Urine Bilirubin Negative (Negative) Urine Urobilinogen 0.2 (0.2-1.0) Ur Leukocyte Esterase Negative (Negative) Urine RBC 0-5 (0-5) /hpf Urine WBC 0-5 (0-5) /hpf Ur Squamous Epith Cells 5-10 H (0-5) /hpf Urine Bacteria Rare (FEW) /hpf Urine Mucus Moderate H (FEW) /hpf 12/09/19 Range/Units 21:00 WBC (3.98-10.04) K/mm3 RBC (3.98-5.22) M/mm3 Hgb (11.2-15.7) gm/dl Hct (34.1-44.9) % MCV (79.4-94.8) fl MCH (25.6-32.2) pg MCHC (32.2-35.5) g/dl RDW Std Deviation (36.4-46.3) fL Plt Count (182-369) K/mm3 MPV (9.4-12.3) fl Neut % (Auto) (34.0-71.1) % Lymph % (Auto) (19.3-51.7) % Baxter % (Auto) (4.7-12.5) % Eos % (Auto) (0.7-5.8) Baso % (Auto) (0.1-1.2) % Neut # (Auto) (1.56-6.13) K/mm3 Lymph # (Auto) (1.18-3.74) K/mm3 Baxter # (Auto) (0.24-0.36) K/mm3 Eos # (Auto) (0.04-0.36) K/mm3 Baso # (Auto) (0.01-0.08) K/mm3 Manual Slide Review Sodium (136-145) mEq/L Potassium (3.5-5.1) mEq/L Chloride (98-107) mEq/L Carbon Dioxide (21-32) mEq/L Anion Gap (5-15) BUN (7-18) mg/dL Creatinine (0.55-1.02) mg/dL Est Cr Clr Drug Dosing mL/min Estimated GFR (MDRD) (>60) mL/min BUN/Creatinine Ratio (14-18) Glucose (74-106) mg/dL Calcium (8.5-10.1) mg/dL Total Bilirubin (0.2-1.0) mg/dL AST (15-37) U/L ALT (14-59) U/L Alkaline Phosphatase (46-116) U/L Total Protein (6.4-8.2) g/dl Albumin (3.4-5.0) g/dl Globulin gm/dL Albumin/Globulin Ratio (1-2) Lipase (73-393) U/L HCG, Qual Negative (NEGATIVE) Urine Color (Yellow) Urine Appearance (Clear) Urine pH (5.0-8.0) Ur Specific Down[place] (1.005-1.030) Urine Protein (Negative) Urine Glucose (UA) (Negative) Urine Ketones (Negative) Urine Occult Blood (Negative) Urine Nitrite (Negative) Urine Bilirubin (Negative) Urine Urobilinogen (0.2-1.0) Ur Leukocyte Esterase (Negative) Urine RBC (0-5) /hpf Urine WBC (0-5) /hpf Ur Squamous Epith Cells (0-5) /hpf Urine Bacteria (FEW) /hpf Urine Mucus (FEW) /hpf Meds: Medications Discontinued Medications Generic Name Dose Route Start Last Admin Trade Name Haider PRN Reason Stop Dose Admin Hydrocodone Bitart/Acetaminophen 1 tab 12/09/19 22:22 [place] 325-5 Mg PO 12/09/19 22:23 ONETIME ONE Al Hydroxide/Mg Hydroxide 30 0 ml 12/09/19 21:31 12/09/19 21:48 ml/ Lidocaine HCl 15 ml PO 12/09/19 21:32 45 ml ONETIME ONE Administration Ondansetron HCl 4 mg 12/09/19 22:22 Zofran Odt PO 12/09/19 22:23 ONETIME ONE - Re-Assessments/Exams Free Text/Narrative Re-Assessment/Exam: 12/09/19 22:24 Patient is done fairly well here in the emergency department we did try a GI cocktail and this helped none. Labs reviewed her white count is slightly elevated at just under 12,000. Her transaminases are elevated most consistent with a fatty liver and the patient did mention that she had a fatty liver when I did discuss this with her this is been present since the age of 18. We will put an order in for a gallbladder ultrasound as an outpatient. Patient will be discharged with Melba and Jacqueline. Departure - Departure Time of Disposition: 22:25 Disposition: Home, Self-Care 01 Clinical Impression: Upper abdominal pain - Discharge Information Prescriptions: Acetaminophen/HYDROcodone [[place] 325-5 MG] 1 tab PO Q4H PRN #15 tablet PRN Reason: Abdominal Pain Lansoprazole [Prevacid] 30 mg PO ASDIRECTED #15 tab.rap. Ondansetron [Zofran ODT] 4 mg PO Q6H PRN #10 tab.dis PRN Reason: Nausea/Vomiting Referrals: Radha Mercado MD [Primary Care Provider] - Forms: ED Department Discharge Additional Instructions: Return to the emergency room with any questions problems or worsening symptoms. Use the medication as directed. Follow-up with Dr. Mercado a couple of days after the gallbladder ultrasound is done. Sepsis Event Note - Evaluation Sepsis Screening Result: No Definite Risk - Focused Exam Vital Signs: Vital Signs Temp Pulse Resp BP Pulse Ox 12/09/19 19:34 36.0 C 86 22 H 132/71 100 Date Exam was Performed: 12/09/19 Time Exam was Performed: 22:23
[2019-12-09] MEDS ORDERED: Alum Hydrox/Mag Hydrox/Simeth 30 ML, Lidocaine 2% 15 ML PO ONE ×2 (21:31)
--- NOTE | 2019-12-09 22:13 | CR ---
Chest: Portable view of the chest was obtained. Comparison: No prior chest imaging is available. Heart size and mediastinum are normal. Lungs are clear. Bony structures are grossly intact. Impression: 1. Nothing acute is seen on portable chest x-ray. Diagnostic code #1 This report was dictated in [place] Standard Time
[2019-12-09] MEDS ORDERED: Acetaminophen/HYDROcodone 325-5 MG Tab PO ONE (22:22)
[2019-12-09] MEDS ORDERED: Ondansetron 4 MG Tab.DIS PO ONE (22:22)
== END 2019-12-09 22:44 | disposition home or self-care (01) ==
LOC: JD.ED 19:27
DX: R10.11 Right upper quadrant pain (principal); R06.02 Shortness of breath; I10 Essential (primary) hypertension; E66.9 Obesity, unspecified; Z68.43 Body mass index [BMI] 50.0-59.9, adult; Z79.899 Other long term (current) drug therapy; Z88.0 Allergy status to penicillin
CPT/HCPCS: 36415; 71045; 80053; 81001; 83690; 84703; 85025; 99285; A9270; 99283

== ENCOUNTER → 2019-12-17 | Day surgery (SDC) | payer MEDICAID ==
[~2019-12-17] MED LIST: Bupivacaine 0.5%/EPINEPHrine 1:200,000 50 ML MDV ONE; Dexamethasone 4 MG/ML 5 ML MDV ONE; HYDROmorphone 0.5 MG/0.5 ML Syringe IVPUSH PRN; Ketamine 500 mg/10 ML MDV ONE; Ketorolac 30 MG/ML SDV ONE; Lactated Ringers 1,000 ML IV SCH; Lidocaine 1% 4 ML ONE; Lidocaine 1%/Sod Bicarbonate in NS 8.4% 1 ML Syringe IDERM PRN; Morphine 10 MG/ML SDV ONE; Neostigmine Methylsulfate 1 MG/ML 5 ML Syringe ONE; Ondansetron 4 MG/2 ML SDV IVPUSH PRN; Ondansetron 4 MG/2 ML SDV ONE; Propofol 200 MG/20 ML SDV ONE; Rocuronium 100 MG/10 ML MDV ONE; Sodium Chloride 0.9% 10 ML Syringe FLUSH PRN; fentaNYL 100 MCG/2 ML SDV IVPUSH PRN; fentaNYL 250 MCG/5 ML SDV ONE; oxyCODONE 5 MG Tab PO PRN
--- NOTE | 2019-12-17 12:52 | PCM.PREANE ---
Preanesthetic Assessment - Procedure Proposed Procedure: Laparoscopic cholecystectomy - Anesthesia/Transfusion/Family Hx Anesthesia History: Prior Anesthesia Without Reaction Family History of Anesthesia Reaction: No Transfusion History: No Prior Transfusion(s) Intubation History: Unknown Additional History: No previous history of intubation. Colonoscopy without concerns. - Review of Systems General: No Symptoms Pulmonary: No Symptoms Cardiovascular: No Symptoms Gastrointestinal: Abdominal Pain, Other (high BMI) Neurological: No Symptoms Other: Reports: None - Physical Assessment NPO Status Date: 12/17/19 NPO Status Time: 00:00 Vital Signs: Last Vital Signs Temp 36.2 C 12/17/19 11:40 Pulse 99 12/17/19 11:50 Resp 16 12/17/19 11:40 BP 113/99 H 12/17/19 11:50 Pulse Ox 98 12/17/19 11:40 Height: 5 ft 4 in Weight: 133.356 kg ASA Class: 2E Mental Status: Alert & Oriented x3 Airway Class: Mallampati = 2 Dentition: Reports: Normal Dentition Thyro-Mental Finger Breadths: 3 Mouth Opening Finger Breadths: 3 ROM/Head Extension: Full Lungs: Clear to Auscultation, Normal Respiratory Effort Cardiovascular: Regular Rate, Regular Rhythm - Lab Values: Laboratory Last Values Urine HCG, Qual Negative (NEGATIVE) 12/17/19 11:38 - Allergies Allergies/Adverse Reactions: Allergies Allergy/AdvReac Type Severity Reaction Status Date / Time amoxicillin [Amoxicillin] Allergy Hives Verified 12/09/19 19:38 - Acknowledgements Anesthesia Type Planned: General Anesthesia Pt an Appropriate Candidate for the Planned Anesthesia: Yes Alternatives and Risks of Anesthesia Discussed w Pt/Guardian: Yes Pt/Guardian Understands and Agrees with Anesthesia Plan: Yes PreAnesthesia Questionnaire - Past Health History Medical/Surgical History: Denies Medical/Surgical History HEENT History: Reports: Impaired Vision Cardiovascular History: Reports: Hypertension Respiratory History: Reports: None Gastrointestinal History: Reports: Fatty Liver, Irritable Bowel Syndrome Genitourinary History: Reports: Renal Calculus [employer] CHIEF History: Reports: Musculoskeletal History: Reports: Fracture Other Musculoskeletal History: Right ankle fracture Neurological History: Reports: None Psychiatric History: Reports: Depression Endocrine/Metabolic History: Reports: None Hematologic History: Reports: None Immunologic History: Reports: None Oncologic (Cancer) History: Reports: None Dermatologic History: Reports: Eczema - Past Surgical History Head Surgeries/Procedures: Reports: None HEENT Surgical History: Reports: None Cardiovascular Surgical History: Reports: None Respiratory Surgical History: Reports: None GI Surgical History: Reports: Colonoscopy, EGD Female Surgical History: Reports: None Endocrine Surgical History: Reports: None Neurological Surgical History: Reports: None Musculoskeletal Surgical History: Reports: None Oncologic Surgical History: Reports: None Dermatological Surgical History: Reports: None - SUBSTANCE USE Smoking Status *Q: Never Smoker Second Hand Smoke Exposure: No Recreational Drug Use History: No - HOME MEDS Home Medications: Home Meds Citalopram Hydrobromide [Celexa] 10 mg PO DAILY 05/28/19 [History] Multivitamin [Flintstones] 1 each PO DAILY 05/28/19 [History] Ibuprofen [Motrin] 600 mg PO Q6H PRN tablet 07/03/19 [Rx] Acetaminophen/HYDROcodone [[place] 325-5 MG] 1 tab PO Q4H PRN #15 tablet 12/09/19 [Rx] Lansoprazole [Prevacid] 30 mg PO ASDIRECTED #15 tab.rapShashankdr 12/09/19 [Rx] Ondansetron [Zofran ODT] 4 mg PO Q6H PRN #10 tab.dis 12/09/19 [Rx] - CURRENT (IN HOUSE) MEDS Current Meds: Current Medications Lactated Ringer's (Ringers, Lactated) 1,000 mls @ 125 mls/hr IV ASDIRECTED DAJA Stop: 12/17/19 23:00 Lidocaine/Sodium Bicarbonate (Buffered Lidocaine 1% In Ns 8.4%) 0.25 ml IDERM ONETIME PRN PRN Reason: Prior to IV Start Stop: 12/17/19 18:00 Sodium Chloride (Saline Flush) 10 ml FLUSH ASDIRECTED PRN PRN Reason: Keep Vein Open Stop: 12/17/19 18:00 Discontinued Medications Bupivacaine HCl/Epinephrine Bitart (Marcaine 0.5%/Epinephrine 1:200,000) Confirm Administered Dose 50 ml .ROUTE .STK-MED ONE Stop: 12/17/19 12:05 Dexamethasone (Dexamethasone) Confirm Administered Dose 20 mg .ROUTE .STK-MED ONE Stop: 12/17/19 12:07 Fentanyl (Sublimaze) Confirm Administered Dose 250 mcg .ROUTE .STK-MED ONE Stop: 01/16/20 12:07 Lidocaine HCl (Xylocaine-Mpf 1%) Confirm Administered Dose 4 mls @ as directed .ROUTE .STK-MED ONE Stop: 12/17/19 12:07 Ketorolac Tromethamine (Toradol) Confirm Administered Dose 30 mg .ROUTE [facility] [employer] ONE Stop: 12/17/19 12:07 Ondansetron HCl (Zofran) Confirm Administered Dose 4 mg .[facility]TE [facility] Stop: 12/17/19 12:07 Propofol (Diprivan 20 Ml) Confirm Administered Dose 400 mg .[facility]OUTE [facility] Stop: 12/17/19 12:07 Rocuronium [place] (Zemuron) Confirm Administered Dose 100 mg .ROUTE [facility] Stop: 12/17/19 12:07
--- NOTE | 2019-12-17 13:55 | PCM.POSTAN ---
POST ANESTHESIA ASSESSMENT - MENTAL STATUS Mental Status: Alert, Oriented - VITAL SIGNS Vital Signs: Last Vital Signs Temp 36.2 C 12/17/19 11:40 Pulse 99 12/17/19 11:50 Resp 16 12/17/19 11:40 BP 113/99 H 12/17/19 11:50 Pulse Ox 98 12/17/19 11:40 - RESPIRATORY Respiratory Status: Respiratory Rate WNL, Airway Patent (Patient came to PACU with NPA. Started to have mild laryngospasm that needed additional reversal with sugammadex. Resolved with total paralytic reversal.), O2 Saturation Stable - CARDIOVASCULAR CV Status: Pulse Rate WNL, Blood Pressure Stable - GASTROINTESTINAL GI Status: No Symptoms - PAIN Pain Score: 8 - POST OP HYDRATION Hydration Status: Adequate & Stable - OBSERVATIONS Free Text/Narrative:: Extubation in OR. Patient had "hiccups" that developed into a mild larygospasm that resolved easily with PPV. Placed NPA to limit obstruction to good effect. Transferred to PACU with NPA and HOB > 30 degree. Initially upon arrival patient was somnolent and breathing well, then as I was giving report she started to laryngospasm again. Used sugammadex to give complete reversal with nearly instant resolution and improved gas exchange. No concerns after paralytic reversal. NPA was removed.
--- NOTE | 2019-12-17 13:58 | PCM.PRNOTE ---
- Free Text/Narrative Note: Operative Report Operation: laparoscopic cholecystectomy Date: 12/17/2019 Attending Surgeon: Hugo Tsai MD Indication for Surgery: right upper quadrant pain, positive Leal sign Preoperative antibiotics: 3 g Ancef IV VTE prophylaxis: SCDs Estimated Blood Loss: 10 cc Findings: relatively normal looking gallbladder. Critical view of safety established. Small puncture injury to right lobe of liver from Veress entry, hemostatic at conclusion of case. Detailed Report: The patient underwent general endotracheal anesthesia after being placed supine on the operating table and initial timeout. The abdomen was prepped and draped in sterile fashion. A pre-incision timeout was performed confirming the patient s identity and the operation to be performed. A Veress needle was inserted into the abdominal cavity below the left costal margin along the mid-clavicular line. It was difficult to properly place the Veress based on abnormal readings on the insufflation machine; after a few attempts at placement it was determined that the setting for the insufflator was for a pediatric case. Once this was remedies insufflation was straightforward. The abdomen was insufflated with CO2 to 15 mm Hg. Gas was aspirated below the umbilicus with a syringe in order to ensure safe placement of a 5 mm bladed laparoscopic port. The 5mm 30 degree laparoscope was then inserted and viscera inspected. There was some air insufflated into the omentum, and there was a single puncture site at the left lobe of the liver with minimal associated hemorrhage. The gallbladder appeared fairly normal but did have some omental adhesions. Two additional 5 mm ports were placed along the right subcostal region under direct vision with the laparoscope, and a 12 mm port was placed at the subxiphoid region. The gallbladder was grasped at the fundus with a locking grasper and retracted anteriorly and superiorly, exposing the infundibulum. This was grasped with the surgeons left hand grasper and retracted laterally. The hook electrode was used to open the overlying peritoneum, and this plane of dissection was developed along the edges of the gallbladder at its interface with the liver bed. A combination of hook electrode, blunt dissection with the suction storage receipt poster, and the [place] grasper were used to carefully expose and skeletonize the cystic duct and artery. A critical view of safety was obtained. Clips were then placed on both structures. The duct and artery were transected with laparoscopic scissors between the hemolock clips. The hook was then used to dissect the gallbladder free from its attachment to the liver. The specimen was then placed in an Endocatch bag and removed through the subxiphoid port. The liver bed was inspected and appeared hemostatic. The larger subxiphoid port was closed at the level of the fascia with vicryl suture using the PMI laparoscopic suture passer. Pneumoperitoneum was then released. All skin incisions were then closed with placement of subcuticular vicryl suture and dressed with dermabond. A total of 30 cc 1% lidocaine with epinephrine was used for local anesthesia at the incision sites. The patient tolerated the operation well, was extubated in the operating room and transferred to the PACU for routine post-anesthesia care. Hugo Tsai MD General Surgery
[2019-12-17 16:05] VITALS: PULSE 78
[2019-12-17 17:25] VITALS: BP 131/89
== END | disposition home or self-care (01) ==
LOC: JD.SDS 11:25
PROVIDERS: ATTEND Surgery
DX: K80.10 Calculus of gallbladder with chronic cholecystitis without obstruction (principal); I10 Essential (primary) hypertension; E78.00 Pure hypercholesterolemia, unspecified; F41.9 Anxiety disorder, unspecified; F32.9 Major depressive disorder, single episode, unspecified; G43.909 Migraine, unspecified, not intractable, without status migrainosus; E66.01 Morbid (severe) obesity due to excess calories; Z68.43 Body mass index [BMI] 50.0-59.9, adult; Z88.0 Allergy status to penicillin; Z79.899 Other long term (current) drug therapy
CPT/HCPCS: 00790; 81025; A9270-GY; J1100; J1885; J2001; J2270; J2405; J2704; J2710; J3010; J3490; J7120

== ENCOUNTER 2020-11-15 09:01 | Emergency (ER) | payer MEDICAID ==
[2020-11-15] MEDS ORDERED: Ondansetron 4 MG/2 ML SDV IVPUSH ONE (09:39)
--- NOTE | 2020-11-15 09:41 | EDM.PDOC ---
ED HPI GENERAL MEDICAL PROBLEM - General Chief Complaint: Gastrointestinal Problem Stated Complaint: FEVER,BODY ACHES,VOMITING AND DIARRHEA Time Seen by Provider: 11/15/20 09:38 Source of Information: Reports: Patient History Limitations: Reports: No Limitations - History of Present Illness INITIAL COMMENTS - FREE TEXT/NARRATIVE: 25-year-old female presents to the ED with a history of recurrent nausea vomiting and diarrhea for about 6 days. Diarrhea stools she reports can be up to 20 times per day. She has a dental infection at present and is currently not on antibiotic therapy and has not been on antibiotics in the last 6 weeks. She states she did keep down a small amount of water this morning. She denies any possibility of . She states her cycles are somewhat irregular. She was on Depo-Provera and she was due for repeat Depo-Provera shot first part of November which she missed. She has been spotting lightly per vagina since that time. Occasional abdominal cramps. She has had her gallbladder removed in the past and states she is almost always had mild diarrhea patterns. Denies any blood in the diarrhea. No blood in the emesis. She feels weak and dizzy and lightheaded upon standing. Try to go to work this morning but was unable to continue. No known exposure to COVID-19 illness and she has been checked twice in the last week including yesterday with test being negative. She denies cough or sputum production. No noted fever but has had some mild chills. Denies sore throat. To her knowledge did not get into any known bad food. Onset: Today, Sudden Onset Date: 11/09/20 Duration: Day(s):, Getting Worse Location: Reports: Abdomen (Recurrent nausea and vomiting associate with diarrhea.) Quality: Reports: Other Severity: Mild (Occasional abdominal cramping pain) Improves with: Reports: None Worsens with: Reports: Eating (Eating makes things much worse.) Context: Reports: Other (Spontaneous occurrence.). Denies: Activity, Exercise, Sick Contact, Trauma Associated Symptoms: Reports: Fever/Chills, Loss of Appetite, Malaise, Nausea/Vomiting, Weakness, Other. 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.) Abdomen Pain Score (Numeric/FACES): 4 - Related Data Allergies Allergy/AdvReac Type Severity Reaction Status Date / Time amoxicillin [Amoxicillin] Allergy Hives Verified 11/15/20 09:26 Home Meds: Home Meds Citalopram Hydrobromide [Celexa] 10 mg PO DAILY 05/28/19 [History] Ciprofloxacin HCl [Cipro] 500 mg PO BID #12 tablet 11/15/20 [Rx] Dicyclomine [Bentyl] 20 mg PO Q6H PRN #8 tablet 11/15/20 [Rx] Past Medical History - Past Health History Medical/Surgical History: Denies Medical/Surgical History HEENT History: Reports: Impaired Vision Cardiovascular History: Reports: Hypertension Respiratory History: Reports: None Gastrointestinal History: Reports: Fatty Liver, Irritable Bowel Syndrome Genitourinary History: Reports: Renal Calculus [employer] TECHNICIAN History: Reports: Polycystic Ovaries, Musculoskeletal History: Reports: Fracture Other Musculoskeletal History: Right ankle fracture Neurological History: Reports: None Psychiatric History: Reports: Depression Endocrine/Metabolic History: Reports: Obesity/BMI 30+ Hematologic History: Reports: Anemia Immunologic History: Reports: None Oncologic (Cancer) History: Reports: None Dermatologic History: Reports: Eczema - Past Surgical History GI Surgical History: Reports: Cholecystectomy, Colonoscopy, EGD Social & Family History - Family History Family Medical History: No Pertinent Family History - Tobacco Use Tobacco Use Status *Q: Never Tobacco User - Caffeine Use Caffeine Use: Reports: Soda - Recreational Drug Use Recreational Drug Use: Yes Recreational Drug Type: Reports: Marijuana/Hashish - Living Situation & Occupation Living situation: Reports: Single, Other (with friends) Occupation: Employed (Daycare) ED [facility] - Review of Systems Review Of Systems: See Below Constitutional: Reports: Chills, Malaise, Weakness, Fatigue, Decreased Appetite. Denies: Fever HEENT: Reports: Glasses Respiratory: Reports: No Symptoms Cardiovascular: Reports: No Symptoms Endocrine: Reports: Fatigue GI/Abdominal: Reports: Abdominal Pain, Diarrhea (Area she reports up to 20 times per day with no blood.), Nausea ( Loose watery and slightly yellow.), Vomiting (Treatment nausea and vomiting of bilious material.). Denies: Stool Incontinence : Reports: No Symptoms Musculoskeletal: Reports: No Symptoms Skin: Reports: No Symptoms Neurological: Reports: Dizziness, Weakness. Denies: Pre-Existing Deficit, Seizure, Tingling Psychiatric: Reports: Depression (History of depression controlled with) Hematologic/Lymphatic: Reports: No Symptoms Immunologic: Reports: No Symptoms ( citalopram) ED EXAM, GI/ABD - Physical Exam Exam: See Below Exam Limited By: No Limitations General Appearance: Alert, WD/WN, No Apparent Distress, Other (Temperature is 36.4 heart rate 132 and sinus at the bedside respiratory is 18 with O2 sats of 98% room air BP 121 102.) Eyes: Bilateral: Normal Appearance (No scleral icterus or blepharal pallor.) Nose: Normal Inspection Throat/Mouth: Other (Tongue is dry and coated.) Head: Atraumatic, Normocephalic Neck: Normal Inspection, Supple, Non-Tender, Full Range of Motion. No: Lymphadenopathy (L), Lymphadenopathy (R) Respiratory/Chest: No Respiratory Distress, Lungs Clear, Normal Breath Sounds, No Accessory Muscle Use Cardiovascular: Normal Peripheral Pulses, Regular Rate, Rhythm, No Edema, No Gallop, No Murmur, No Rub GI/Abdominal Exam: Normal Bowel Sounds, Soft, Non-Tender, No Organomegaly, No Mass, Pelvis Stable. No: Guarding, Rigid, Rebound, Tender (Female) Exam: Other (Occasional spotting per vagina since missing her Depo- Medrol repeat shot 01 November.) Back Exam: Normal Inspection, Full Range of Motion. No: CVA Tenderness (L), CVA Tenderness (R) Extremities: Normal Inspection, Normal Range of Motion, Non-Tender, No Pedal Edema Neurological: Alert, Oriented, CN II-XII Intact, Normal Cognition, Normal Gait Psychiatric: Normal Affect, Normal Mood Skin Exam: Warm, Dry, Intact, Normal Color, No Rash Course - Vital Signs Last Recorded V/S: Last Vital Signs Temp 36.4 C 11/15/20 09:21 Pulse 94 11/15/20 13:30 Resp 16 11/15/20 13:30 BP 124/80 11/15/20 13:30 Pulse Ox 100 11/15/20 13:30 - Orders/Labs/Meds Orders: Active Orders 24 hr Category Date Time Status FECAL LACTOFERRIN [MREF] Stat Lab 11/15/20 11:55 Received STOOL CULTURE/SHIGA TOXIN [MREF] Stat Lab 11/15/20 11:55 Received WBC, STOOL [OP] Stat Lab 11/15/20 11:58 Ordered Dextrose 5%-0.9% NaCl [Dextrose 5%-Normal Saline] 1,000 Med 11/15/20 12:00 Active ml IV ASDIRECTED Lactated Ringers [Ringers, Lactated] 1,000 ml Med 11/15/20 09:45 Active IV ASDIRECTED Medication Orders Lactated Ringer's (Ringers, Lactated) 1,000 mls @ 999 mls/hr IV ASDIRECTED DAJA Last Admin: 11/15/20 10:06 Dose: 999 mls/hr Documented by: MARLIN Dextrose/Sodium Chloride (Dextrose 5%-Normal Saline) 1,000 mls @ 150 mls/hr IV ASDIRECTED DAJA Last Admin: 11/15/20 12:17 Dose: 150 mls/hr Documented by: MARLIN Labs: Laboratory Tests 11/15/20 11/15/20 11/15/20 Range/Units 09:40 10:04 10:04 WBC 7.40 (3.98-10.04) K/mm3 RBC 5.00 (3.98-5.22) M/mm3 Hgb 14.1 (11.2-15.7) gm/dl Hct 42.0 (34.1-44.9) % MCV 84.0 (79.4-94.8) fl MCH 28.2 (25.6-32.2) pg MCHC 33.6 (32.2-35.5) g/dl RDW Std Deviation 45.1 (36.4-46.3) fL Plt Count 153 L D (182-369) K/mm3 MPV 12.4 H (9.4-12.3) fl Neut % (Auto) 37.7 (34.0-71.1) % Lymph % (Auto) 50.5 (19.3-51.7) % [place] % (Auto) 8.5 (4.7-12.5) % Eos % (Auto) 0.9 (0.7-5.8) Baso % (Auto) 1.9 H (0.1-1.2) % Neut # (Auto) 2.78 (1.56-6.13) K/mm3 Lymph # (Auto) 3.74 (1.18-3.74) K/mm3 [place] # (Auto) 0.63 H (0.24-0.36) K/mm3 Eos # (Auto) 0.07 (0.04-0.36) K/mm3 Baso # (Auto) 0.14 H (0.01-0.08) K/mm3 Manual Slide Review Normal smear Sodium (136-145) mEq/L Potassium (3.5-5.1) mEq/L Chloride (98-107) mEq/L Carbon Dioxide (21-32) mEq/L Anion Gap (5-15) BUN (7-18) mg/dL Creatinine (0.55-1.02) mg/dL Est Cr Clr Drug Dosing mL/min Estimated GFR (MDRD) (>60) mL/min BUN/Creatinine Ratio (14-18) Glucose (74-106) mg/dL Hemoglobin A1c 6.00 (4.50-6.20) % Calcium (8.5-10.1) mg/dL Magnesium (1.8-2.4) mg/dl Ferritin (8-252) ng/ml Total Bilirubin (0.2-1.0) mg/dL AST (15-37) U/L ALT (14-59) U/L Alkaline Phosphatase (46-116) U/L Lactate Dehydrogenase (81-234) U/L C-Reactive Protein (<1.0) mg/dL Total Protein (6.4-8.2) g/dl Albumin (3.4-5.0) g/dl Globulin gm/dL Albumin/Globulin Ratio (1-2) HCG, Qual (NEGATIVE) Urine Color Yellow (Yellow) Urine Appearance Clear (Clear) Urine pH 7.0 (5.0-8.0) Ur Specific [place] 1.015 (1.005-1.030) Urine Protein Trace H (Negative) Urine Glucose (UA) Negative (Negative) Urine Ketones Negative (Negative) Urine Occult Blood Negative (Negative) Urine Nitrite Negative (Negative) Urine Bilirubin Negative (Negative) Urine Urobilinogen 0.2 (0.2-1.0) Ur Leukocyte Esterase Negative (Negative) Urine RBC 0-5 (0-5) /hpf Urine WBC 0-5 (0-5) /hpf Ur Epithelial Cells 5-10 H (0-5) /hpf Urine Bacteria Rare (FEW) /hpf Urine Mucus Few (FEW) /hpf Ketones (0.0-0.3) mM C.difficile 027-NAP1-B1 C. difficile Tox (PCR) 11/15/20 11/15/20 11/15/20 Range/Units 10:04 10:04 10:53 WBC (3.98-10.04) K/mm3 RBC (3.98-5.22) M/mm3 Hgb (11.2-15.7) gm/dl Hct (34.1-44.9) % MCV (79.4-94.8) fl MCH (25.6-32.2) pg MCHC (32.2-35.5) g/dl RDW Std Deviation (36.4-46.3) fL Plt Count (182-369) K/mm3 MPV (9.4-12.3) fl Neut % (Auto) (34.0-71.1) % Lymph % (Auto) (19.3-51.7) % [place] % (Auto) (4.7-12.5) % Eos % (Auto) (0.7-5.8) Baso % (Auto) (0.1-1.2) % Neut # (Auto) (1.56-6.13) K/mm3 Lymph # (Auto) (1.18-3.74) K/mm3 [place] # (Auto) (0.24-0.36) K/mm3 Eos # (Auto) (0.04-0.36) K/mm3 Baso # (Auto) (0.01-0.08) K/mm3 Manual Slide Review Sodium 134 L (136-145) mEq/L Potassium 2.9 L (3.5-5.1) mEq/L Chloride 101 (98-107) mEq/L Carbon Dioxide 22 (21-32) mEq/L Anion Gap 13.9 (5-15) BUN 7 (7-18) mg/dL Creatinine 0.9 (0.55-1.02) mg/dL Est Cr Clr Drug Dosing 83.95 mL/min Estimated GFR (MDRD) > 60 (>60) mL/min BUN/Creatinine Ratio 7.8 L (14-18) Glucose 93 (74-106) mg/dL Hemoglobin A1c (4.50-6.20) % Calcium 7.9 L (8.5-10.1) mg/dL Magnesium 1.3 L (1.8-2.4) mg/dl Ferritin 247 (8-252) ng/ml Total Bilirubin 0.6 (0.2-1.0) mg/dL AST 66 H (15-37) U/L ALT 69 H (14-59) U/L Alkaline Phosphatase 90 (46-116) U/L Lactate Dehydrogenase 445 H (81-234) U/L C-Reactive Protein (<1.0) mg/dL Total Protein 6.6 (6.4-8.2) g/dl Albumin 2.8 L (3.4-5.0) g/dl Globulin 3.8 gm/dL Albumin/Globulin Ratio 0.7 L (1-2) HCG, Qual (NEGATIVE) Urine Color (Yellow) Urine Appearance (Clear) Urine pH (5.0-8.0) Ur Specific [place] (1.005-1.030) Urine Protein (Negative) Urine Glucose (UA) (Negative) Urine Ketones (Negative) Urine Occult Blood (Negative) Urine Nitrite (Negative) Urine Bilirubin (Negative) Urine Urobilinogen (0.2-1.0) Ur Leukocyte Esterase (Negative) Urine RBC (0-5) /hpf Urine WBC (0-5) /hpf Ur Epithelial Cells (0-5) /hpf Urine Bacteria (FEW) /hpf Urine Mucus (FEW) /hpf Ketones (0.0-0.3) mM C.difficile 027-NAP1-B1 C. difficile Tox (PCR) 11/15/20 11/15/20 11/15/20 Range/Units 10:53 10:53 10:53 WBC (3.98-10.04) K/mm3 RBC (3.98-5.22) M/mm3 Hgb (11.2-15.7) gm/dl Hct (34.1-44.9) % MCV (79.4-94.8) fl MCH (25.6-32.2) pg MCHC (32.2-35.5) g/dl RDW Std Deviation (36.4-46.3) fL Plt Count (182-369) K/mm3 MPV (9.4-12.3) fl Neut % (Auto) (34.0-71.1) % Lymph % (Auto) (19.3-51.7) % [place] % (Auto) (4.7-12.5) % Eos % (Auto) (0.7-5.8) Baso % (Auto) (0.1-1.2) % Neut # (Auto) (1.56-6.13) K/mm3 Lymph # (Auto) (1.18-3.74) K/mm3 [place] # (Auto) (0.24-0.36) K/mm3 Eos # (Auto) (0.04-0.36) K/mm3 Baso # (Auto) (0.01-0.08) K/mm3 Manual Slide Review Sodium (136-145) mEq/L Potassium (3.5-5.1) mEq/L Chloride (98-107) mEq/L Carbon Dioxide (21-32) mEq/L Anion Gap (5-15) BUN (7-18) mg/dL Creatinine (0.55-1.02) mg/dL Est Cr Clr Drug Dosing mL/min Estimated GFR (MDRD) (>60) mL/min BUN/Creatinine Ratio (14-18) Glucose (74-106) mg/dL Hemoglobin A1c (4.50-6.20) % Calcium (8.5-10.1) mg/dL Magnesium (1.8-2.4) mg/dl Ferritin (8-252) ng/ml Total Bilirubin (0.2-1.0) mg/dL AST (15-37) U/L ALT (14-59) U/L Alkaline Phosphatase (46-116) U/L Lactate Dehydrogenase (81-234) U/L C-Reactive Protein 2.8 H* (<1.0) mg/dL Total Protein (6.4-8.2) g/dl Albumin (3.4-5.0) g/dl Globulin gm/dL Albumin/Globulin Ratio (1-2) HCG, Qual Negative (NEGATIVE) Urine Color (Yellow) Urine Appearance (Clear) Urine pH (5.0-8.0) Ur Specific [place] (1.005-1.030) Urine Protein (Negative) Urine Glucose (UA) (Negative) Urine Ketones (Negative) Urine Occult Blood (Negative) Urine Nitrite (Negative) Urine Bilirubin (Negative) Urine Urobilinogen (0.2-1.0) Ur Leukocyte Esterase (Negative) Urine RBC (0-5) /hpf Urine WBC (0-5) /hpf Ur Epithelial Cells (0-5) /hpf Urine Bacteria (FEW) /hpf Urine Mucus (FEW) /hpf Ketones 0.01 (0.0-0.3) mM C.difficile 027-NAP1-B1 C. difficile Tox (PCR) 11/15/20 Range/Units 11:55 WBC (3.98-10.04) K/mm3 RBC (3.98-5.22) M/mm3 Hgb (11.2-15.7) gm/dl Hct (34.1-44.9) % MCV (79.4-94.8) fl MCH (25.6-32.2) pg MCHC (32.2-35.5) g/dl RDW Std Deviation (36.4-46.3) fL Plt Count (182-369) K/mm3 MPV (9.4-12.3) fl Neut % (Auto) (34.0-71.1) % Lymph % (Auto) (19.3-51.7) % [place] % (Auto) (4.7-12.5) % Eos % (Auto) (0.7-5.8) Baso % (Auto) (0.1-1.2) % Neut # (Auto) (1.56-6.13) K/mm3 Lymph # (Auto) (1.18-3.74) K/mm3 [place] # (Auto) (0.24-0.36) K/mm3 Eos # (Auto) (0.04-0.36) K/mm3 Baso # (Auto) (0.01-0.08) K/mm3 Manual Slide Review Sodium (136-145) mEq/L Potassium (3.5-5.1) mEq/L Chloride (98-107) mEq/L Carbon Dioxide (21-32) mEq/L Anion Gap (5-15) BUN (7-18) mg/dL Creatinine (0.55-1.02) mg/dL Est Cr Clr Drug Dosing mL/min Estimated GFR (MDRD) (>60) mL/min BUN/Creatinine Ratio (14-18) Glucose (74-106) mg/dL Hemoglobin A1c (4.50-6.20) % Calcium (8.5-10.1) mg/dL Magnesium (1.8-2.4) mg/dl Ferritin (8-252) ng/ml Total Bilirubin (0.2-1.0) mg/dL AST (15-37) U/L ALT (14-59) U/L Alkaline Phosphatase (46-116) U/L Lactate Dehydrogenase (81-234) U/L C-Reactive Protein (<1.0) mg/dL Total Protein (6.4-8.2) g/dl Albumin (3.4-5.0) g/dl Globulin gm/dL Albumin/Globulin Ratio (1-2) HCG, Qual (NEGATIVE) Urine Color (Yellow) Urine Appearance (Clear) Urine pH (5.0-8.0) Ur Specific [place] (1.005-1.030) Urine Protein (Negative) Urine Glucose (UA) (Negative) Urine Ketones (Negative) Urine Occult Blood (Negative) Urine Nitrite (Negative) Urine Bilirubin (Negative) Urine Urobilinogen (0.2-1.0) Ur Leukocyte Esterase (Negative) Urine RBC (0-5) /hpf Urine WBC (0-5) /hpf Ur Epithelial Cells (0-5) /hpf Urine Bacteria (FEW) /hpf Urine Mucus (FEW) /hpf Ketones (0.0-0.3) mM C.difficile 027-NAP1-B1 Presumptive negative C. difficile Tox (PCR) Negative Meds: Medications Generic Name Dose Route Start Last Admin Trade Name Freq PRN Reason Stop Dose Admin Lactated Ringer's 1,000 mls @ 999 mls/hr 11/15/20 09:45 11/15/20 10:06 Ringers, Lactated IV 999 mls/hr ASDIRECTED DAJA Administration Dextrose/Sodium Chloride 1,000 mls @ 150 mls/hr 11/15/20 12:00 11/15/20 12:17 Dextrose 5%-Normal Saline IV 150 mls/hr ASDIRECTED DAJA Administration Discontinued Medications Generic Name Dose Route Start Last Admin Trade Name Freq PRN Reason Stop Dose Admin Potassium Chloride 10 meq/ 100 mls @ 100 mls/hr 11/15/20 12:00 11/15/20 14:58 Premix IV 11/15/20 14:59 Not Given Q1H DAJA Magnesium Sulfate 4 gm/ Premix 50 mls @ 12.5 mls/hr 11/15/20 11:56 11/15/20 12:19 IV 11/15/20 15:55 12.5 mls/hr ONETIME ONE Administration Ondansetron HCl 4 mg 11/15/20 09:39 11/15/20 10:07 Zofran IVPUSH 11/15/20 09:40 4 mg ONETIME ONE Administration - Radiology Interpretation Free Text/Narrative:: 25-year-old female presents to the ED with a 6-day history of fever chills nausea and vomiting and she reports up to 20 loose small quantity volume loss stools per rectum. No blood. Associated mild lower abdominal cramping pain. Questionable intermittent fever and chills. Cannot keep anything down today at all. Has not taken any antibiotics for dental infection. Awaiting till the of this month which is the soonest she could get into the dentist to have the tooth extracted. Plan she does appear volume depleted. Plan lactated Ringer's at open. Given Zofran 4 mg IV for nausea relief since Reglan is relatively contraindicated due to being on citalopram. We will try and obtain a stool sample for culture and white cells. Chest x-ray will be done she has had 2 Covid negative test in the last week and it will not be repeated. A chest x- ray will be done. Routine labs including CRP to be done. Rule out occult diabetes. - Re-Assessments/Exams Free Text/Narrative Re-Assessment/Exam: 11/15/20 11:13 White count came back at 7.40. Auto differential shows 37.7% neutrophils and 50.5% lymphocytes suggesting a viral infection. Elect count is slightly low 153,000. Urinalysis shows no signs of infection only 5-10 epithelial cells per high-power field. Patient reports she is feeling better now with less nausea. She is actually starting to feel hungry. I am going to give her a little bit of food and fluids to see if we can induce a bowel movement so they can get a sample analyzed. Concern is for possible COVID-19 illness in spite of being tested negative x2. She has a viral pattern to her illness with low platelets characteristic of COVID-19 illness. I will order a serum LDH and serum ferritin at this time. 11/15/20 11:51 Chemistry is now back and reveals a mild hyponatremia at 134 and a potassium low at 2.9. Chloride is 101 with a bicarb of 22. Anion gap is 13.9. BUN is 7 with a creatinine of 0.9 GFR greater than 60. Glucose is 93 hemoglobin A1c is 6.0. Calcium is low at 7.9 from not eating. Magnesium low at 1.3 again most likely from not eating. Total bilirubin is 0.6 AST slightly elevated at 66 and ALT is 69. Alk phos days is 90. Total protein 6.6 with an albumin fraction low at 2.8 again from not being able to eat. Beta-hCG is negative. Serum ketones are normal at 0.01. Her initial bolus of Ringer's lactate is nearly infused. Second IV will be D5 normal saline at 150 mils per hour. She will receive 4 g of magnesium intravenously and 3K riders of potassium. She did generate a small stool sample that will be sent over for analysis at this time. 11/15/20 12:22 Serum ferritin is normal at 247. LDH is elevated at 445. C- reactive protein is 2.8 11/15/20 13:10 Stool sample is presumptive negative for C. difficile enteritis. No white count is yet available on the stool. 11/15/20 14:47 nurses report that the IV containing D5 normal saline and K rider has infiltrated with a pocket of fluid medial aspect of her left elbow. There is a softball swelling in this area indicating probably a collection of 4 500 mils of fluid. She states it is throbbing but not burning. The incident the infusion of course has been discontinued and will not pursue further treatment since her IVs are extremely difficult to get started. She still has her magnesium infusion running for about another hour and 30 minutes. Lab is indicated that they no longer do stool for white cells which helps us differentiate between a bacterial and a viral infection. It does not do as much good to find out 2 days later. Patient clinically has a bacterial enteritis and will therefore be started on Cipro 500 mg twice daily for the next 6 days and Bentyl 20 mg every 6 hours p.m. for diarrhea control. 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 11/15/20 15:49 patient has completed 4 g of magnesium infusion. She will ther efore be discharged to home. She will use Bentyl 20 mg every 6 hours as needed for relief of abdominal pain or diarrhea and start Cipro 500 mg twice daily for the next 6 days to bring suspect foodborne illness under control. Culture of the stool is pending. Departure - Departure Time of Disposition: 15:49 Disposition: Home, Self-Care 01 Condition: Fair Clinical Impression: Diarrhea Qualifiers: Diarrhea type: infectious Qualified Code(s): A09 - Infectious gastroenteritis and colitis, unspecified - Discharge Information *PRESCRIPTION DRUG MONITORING PROGRAM REVIEWED*: Not Applicable *COPY OF PRESCRIPTION DRUG MONITORING REPORT IN PATIENT ELIZABETH: Not Applicable Prescriptions: Dicyclomine [Bentyl] 20 mg PO Q6H PRN #8 tablet PRN Reason: Abdominal cramps/diarrhea Ciprofloxacin HCl [Cipro] 500 mg PO BID #12 tablet Instructions: Diarrhea, Adult Referrals: Radha Mercado MD [Primary Care Provider] - Forms: ED Department Discharge, ED Return to Work/School Form Additional Instructions: Evaluation in the emergency room today in regards to a 6-day history of fairly prolific diarrhea with mild associated nausea. The lab work suggests a possible bacterial infection or foodborne illness causing the diarrhea. The stool collected in the ED is negative for C. difficile enteritis. This is a form of bacterial induced colitis usually after taking a form of antibiotics. Treatment is therefore plenty of fluids such as Gatorade/Powerade ideally 6 to 7 ounces sipped per hour. When hungry try soda crackers and try chicken noodle rice or turkey vegetable etc. Jam on white bread is always good source of light diet. Suggest no apple juice or grape juice and no dairy products until the stools are formed back up. Antibiotic is to be Cipro 500 mg taken twice daily with the first tablet to be taken tonight. Should be taken twice daily for the next 6 days to clear up infection. May use Bentyl 20 mg every 6 hours necessary for relief of abdominal cramping pain and or diarrhea. 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 Turn to medical care if diarrhea Lynda is not markedly improved in 48 to 72 hours time Sepsis Event Note (ED) - Evaluation Sepsis Screening Result: No Definite Risk - Focused Exam Vital Signs: Vital Signs Temp Pulse Resp BP Pulse Ox 11/15/20 13:30 94 16 124/80 100 11/15/20 09:21 36.4 C 132 H 18 121/102 H 98 - My Orders Last 24 Hours: My Active Orders 11/15/20 09:45 Lactated Ringers [Ringers, Lactated] 1,000 ml IV ASDIRECTED 11/15/20 11:55 FECAL LACTOFERRIN [MREF] Stat STOOL CULTURE/SHIGA TOXIN [MREF] Stat 11/15/20 11:58 WBC, STOOL [OP] Stat 11/15/20 12:00 Dextrose 5%-0.9% NaCl [Dextrose 5%-Normal Saline] 1,000 ml IV ASDIRECTED - Assessment/Plan Last 24 Hours: My Active Orders 11/15/20 09:45 Lactated Ringers [Ringers, Lactated] 1,000 ml IV ASDIRECTED 11/15/20 11:55 FECAL LACTOFERRIN [MREF] Stat STOOL CULTURE/SHIGA TOXIN [MREF] Stat 11/15/20 11:58 WBC, STOOL [OP] Stat 11/15/20 12:00 Dextrose 5%-0.9% NaCl [Dextrose 5%-Normal Saline] 1,000 ml IV ASDIRECTED
[2020-11-15] MEDS ORDERED: Lactated Ringers 1,000 ML IV SCH (09:45)
--- NOTE | 2020-11-15 10:44 | CR ---
Chest: Portable view of the chest was obtained. Comparison: Prior chest x-ray of 12/09/19. Heart size and mediastinum are normal. Lungs are clear with no parenchymal change. Bony structures are grossly intact. Impression: 1. Nothing acute is appreciated on portable chest x-ray. Diagnostic code #1
[2020-11-15] MEDS ORDERED: Magnesium Sulfate/Water 4 GM in Premix Bag 1 BAG IV ONE (11:56)
[2020-11-15] MEDS ORDERED: Dextrose 5%-0.9% NaCl 1,000 ML IV SCH (12:00)
[2020-11-15] MEDS: Potassium Chloride 10 MEQ in Premix Bag 1 BAG IV SCH ×3 (12:18→14:58)
[2020-11-15 17:17] VITALS: BP 125/92; PULSE 104
== END 2020-11-15 16:09 | disposition home or self-care (01) ==
LOC: JD.ED 09:01
DX: A09 Infectious gastroenteritis and colitis, unspecified (principal); I10 Essential (primary) hypertension; F32.9 Major depressive disorder, single episode, unspecified; E66.9 Obesity, unspecified; Z68.42 Body mass index [BMI] 45.0-49.9, adult; Z79.899 Other long term (current) drug therapy; Z88.1 Allergy status to other antibiotic agents
CPT/HCPCS: 36415; 71045; 80053; 81001; 82009; 82728; 83036; 83615; 83630; 83735; 84703; 85025; 86140; 87045; 87046; 87493; 87899; 96365; 96366; 96367; 96368; 96375; 99284; J2405; J3475; J3480; J7042; J7120

== ENCOUNTER 2021-07-06 20:47 | Emergency (ER) | payer MEDICAID, OTHER ==
[2021-07-06 21:10] VITALS: BP 166/137; PULSE 79
[2021-07-06] MEDS ORDERED: Ketorolac 30 MG/ML SDV IVPUSH ONE (21:17)
[2021-07-06] MEDS ORDERED: Ondansetron 4 MG/2 ML SDV IVPUSH ONE (21:17)
[2021-07-06] MEDS ORDERED: Sodium Chloride 0.9% 10 ML Syringe FLUSH PRN (21:17)
[2021-07-06] MEDS ORDERED: Sodium Chloride 0.9% 1,000 ML IV ONE (21:17)
--- NOTE | 2021-07-06 21:23 | EDM.PDOC ---
<Hortencia Medrano M - Last Filed: 07/06/21 23:03> ED HPI GENERAL MEDICAL PROBLEM - General Chief Complaint: Flank Pain Stated Complaint: POSS KIDNEY STONES Time Seen by Provider: 07/06/21 21:08 Source of Information: Reports: Patient History Limitations: Reports: No Limitations - History of Present Illness INITIAL COMMENTS - FREE TEXT/NARRATIVE: 25-year-old female presents the emergency department with complaints of right lower quadrant abdominal pain that radiates into her right flank. Patient states that approximately 5 PM this evening she developed severe sudden onset right lower quadrant abdominal pain that radiates to her right flank. She states she immediately had nausea associated with this however she has not vomited. She states that the pain is so intense and it feels like she is being stabbed with a knife and she is unable to lay still in bed. She states she has been pacing her home since 5 PM. She denies any recent fever, chills, vomiting, or diarrhea. She denies any cough, headache, sore throat or shortness of breath or any respiratory symptoms. She denies any urinary symptoms. She is not aware of any blood noted in her urine. She states she does have a history of kidney stones twice in the past and she states this feels similar to those episodes. Patient states she is otherwise healthy and her primary care provider is Radha Mercado Right Abdomen Pain Score (Numeric/FACES): 10 - Related Data Allergies Allergy/AdvReac Type Severity Reaction Status Date / Time amoxicillin [Amoxicillin] Allergy Hives Verified 07/06/21 21:10 Home Meds: Home Meds Citalopram Hydrobromide [Celexa] 10 mg PO DAILY 05/28/19 [History] Ondansetron [Zofran ODT] 1 tab PO Q8H PRN #14 tab.dis 07/07/21 [Rx] Tamsulosin [Flomax] 1 cap PO QAM PRN #5 cap.er 07/07/21 [Rx] oxyCODONE HCl/Acetaminophen [Percocet 2.5-325 mg Tablet] 1 - 2 tab PO Q6H PRN #10 tablet 07/07/21 [Rx] Past Medical History - Past Health History Medical/Surgical History: Denies Medical/Surgical History HEENT History: Reports: Glaucoma, Impaired Vision Cardiovascular History: Reports: Hypertension Respiratory History: Reports: None Gastrointestinal History: Reports: Fatty Liver, Irritable Bowel Syndrome Genitourinary History: Reports: Renal Calculus [facility] History: Reports: Polycystic Ovaries, Musculoskeletal History: Reports: Fracture Other Musculoskeletal History: Right ankle fracture Neurological History: Reports: None Psychiatric History: Reports: Depression Endocrine/Metabolic History: Reports: Obesity/BMI 30+ Hematologic History: Reports: Anemia Immunologic History: Reports: None Oncologic (Cancer) History: Reports: None Dermatologic History: Reports: Eczema - Past Surgical History Head Surgeries/Procedures: Reports: None HEENT Surgical History: Reports: None Cardiovascular Surgical History: Reports: None Respiratory Surgical History: Reports: None GI Surgical History: Reports: Cholecystectomy, Colonoscopy, EGD Female Surgical History: Reports: None Endocrine Surgical History: Reports: None Neurological Surgical History: Reports: None Musculoskeletal Surgical History: Reports: None Oncologic Surgical History: Reports: None Dermatological Surgical History: Reports: None Social & Family History - Family History Family Medical History: No Pertinent Family History - Tobacco Use Tobacco Use Status *Q: Never Tobacco User Second Hand Smoke Exposure: No - Caffeine Use Caffeine Use: Reports: Soda - Recreational Drug Use Recreational Drug Use: No - Living Situation & Occupation Living situation: Reports: Single, Other (with friends) Occupation: Employed (Daycare) ED ROS GENERAL - Review of Systems Review Of Systems: Comprehensive ROS is negative, except as noted in HPI. ED EXAM, RENAL/ - Physical Exam Exam: See Below Exam Limited By: No Limitations General Appearance: Alert, WD/WN, Mild Distress Ears: Normal External Exam, Hearing Grossly Normal Nose: Normal Inspection Throat/Mouth: Normal Inspection, Normal Lips, Normal Voice, No Airway Compromise Head: Atraumatic Neck: Normal Inspection, Supple Respiratory/Chest: No Respiratory Distress, Lungs Clear, Normal Breath Sounds, N o Accessory Muscle Use, Chest Non-Tender Cardiovascular: Normal Peripheral Pulses, Regular Rate, Rhythm, No Edema, No Murmur GI/Abdominal: Normal Bowel Sounds, Soft, Non-Tender, No Distention (Female) Exam: Deferred Rectal (Female) Exam: Deferred Back Exam: Normal Inspection Extremities: Normal Inspection, Normal Range of Motion, Non-Tender, No Pedal Edema, Normal Capillary Refill Neurological: Alert, Oriented, Normal Cognition Psychiatric: Normal Affect, Normal Mood Skin Exam: Warm, Dry, Intact, Normal Color, No Rash Lymphatic: No Adenopathy Course - Vital Signs Text/Narrative:: As stated above, the patient presents with sudden onset right lower quadrant pain radiating to her right flank. The pain was so intense that the patient immediately became nauseated. She has not vomited. She denies any other symptoms. She states she has a history of kidney stones in the past and this feels similar to those episodes. I have ordered labs to include a CBC, CMP, and magnesium level. We will obtain a urinalysis with micro and culture if indicated as well as a urine test. If the results of the test are negative I will order a CT abdomen pelvis without contrast stone protocol. She will receive a liter of normal saline IV, Toradol, and Zofran. - Re-Assessments/Exams Free Text/Narrative Re-Assessment/Exam: 07/06/21 22:45 Hematology is essentially unremarkable Chemistry reveals a sodium of 143, potassium 3.9, anion gap 16.9, BUN 9, creatinine 0.8, glucose 136, magnesium 1.8, total bilirubin 0.2, AST 40, ALT 79, alk phos 59 Urinalysis reveals 3+ occult blood, nitrate negative, leukocyte Estrace negative, urine RBC 10-20 Urine test was negative so CT the abdomen pelvis was ordered. 07/06/21 23:03 I have reported off to Dr. Carpenter. He will take over care of the patient. Departure - Departure Disposition: Home, Self-Care 01 Clinical Impression: Ureterolithiasis - Discharge Information Prescriptions: Tamsulosin [Flomax] 1 cap PO QAM PRN #5 cap.er PRN Reason: Pain oxyCODONE HCl/Acetaminophen [Percocet 2.5-325 mg Tablet] 1 - 2 tab PO Q6H PRN #10 tablet PRN Reason: Pain (Severe 7-10) Ondansetron [Zofran ODT] 1 tab PO Q8H PRN #14 tab.dis PRN Reason: Nausea/Vomiting Referrals: PCP,None [Primary Care Provider] - Forms: ED Department Discharge Additional Instructions: You were seen in the emergency room after developing right lower abdominal pain radiating into your right flank. Work-up in the ER included several blood tests, a urinalysis, a urine test, and a CT of your abdomen and pelvis. Your blood work was unremarkable. Your urine demonstrated a lot of blood, but no sign of an infection. The CT of your abdomen and pelvis found a mildly dilated ureter and kidney, but no kidney stone. These findings are consistent with a recently passed kidney stone. We recommend you take [id number] ibuprofen, 3 tablets (600 mg) up to every 8 hours, with food, [id number] initially, as needed for discomfort. A prescription for the narcotic pain reliever [place] has been provided to you. You may take 1 to 2 tablets of [place] up to every 6 hours, as needed for pain not relieved by ibuprofen. If you take [place], do not drive or operate heavy machinery for 12 hours afterwards. [place] may cause constipation, so consider taking a stool softener. You have been started on the anti-spasm medicine tamsulosin (Flomax), and a prescription for tamsulosin has been provided to you. Take 1 tablet of tamsulosin every morning, starting tomorrow morning, 07/08/2021, as needed for discomfort. A prescription for the antinausea medicine Zofran has been provided to you. Dissolve 1 tablet of Zofran on your tongue up to every 8 hours, as needed for nausea/vomiting. Stay adequately hydrated. It does not really matter what type of fluid you drink. If any other problems, please do not hesitate to return to the ER. Sepsis Event Note (ED) - Evaluation Sepsis Screening Result: No Definite Risk <Cj Carpenter - Last Filed: 07/07/21 00:41> Course - Vital Signs Last Recorded V/S: Last Vital Signs Temp 36.1 C 07/06/21 21:08 Pulse 79 07/06/21 21:08 Resp 16 07/06/21 21:08 BP 166/137 H 07/06/21 21:08 Pulse Ox 99 07/06/21 21:08 - Orders/Labs/Meds Orders: Active Orders 24 hr Category Date Time Status Abdomen Pelvis wo Cont [CT] Stat Exams 07/06/21 22:10 Taken Sodium Chloride 0.9% [Saline Flush] Med 07/06/21 21:17 Active 10 ml FLUSH ASDIRECTED PRN Saline Lock Insert [OM.PC] Stat Oth 07/06/21 21:17 Ordered Medication Orders Sodium Chloride (Sodium Chloride 0.9% 10 Ml Syringe) 10 ml FLUSH ASDIRECTED PRN PRN Reason: Keep Vein Open Last Admin: 07/06/21 21:48 Dose: 10 ml Documented by: RAY Labs: Laboratory Tests 07/06/21 07/06/21 07/06/21 Range/Units 21:48 21:48 21:55 WBC 8.37 (3.98-10.04) K/mm3 RBC 4.49 (3.98-5.22) M/mm3 Hgb 13.2 (11.2-15.7) gm/dl Hct 39.4 (34.1-44.9) % MCV 87.8 (79.4-94.8) fl MCH 29.4 (25.6-32.2) pg MCHC 33.5 (32.2-35.5) g/dl RDW Std Deviation 41.5 (36.4-46.3) fL Plt Count 195 (182-369) K/mm3 MPV 11.9 (9.4-12.3) fl Neut % (Auto) 62.4 (34.0-71.1) % Lymph % (Auto) 27.6 (19.3-51.7) % Lipscomb % (Auto) 7.4 (4.7-12.5) % Eos % (Auto) 1.7 (0.7-5.8) Baso % (Auto) 0.5 (0.1-1.2) % Neut # (Auto) 5.23 (1.56-6.13) K/mm3 Lymph # (Auto) 2.31 (1.18-3.74) K/mm3 Lipscomb # (Auto) 0.62 H (0.24-0.36) K/mm3 Eos # (Auto) 0.14 (0.04-0.36) K/mm3 Baso # (Auto) 0.04 (0.01-0.08) K/mm3 Sodium (136-145) mEq/L Potassium (3.5-5.1) mEq/L Chloride (98-107) mEq/L Carbon Dioxide (21-32) mEq/L Anion Gap (5-15) BUN (7-18) mg/dL Creatinine (0.55-1.02) mg/dL Est Cr Clr Drug Dosing mL/min Estimated GFR (MDRD) (>60) mL/min BUN/Creatinine Ratio (14-18) Glucose (70-99) mg/dL Calcium (8.5-10.1) mg/dL Magnesium (1.8-2.4) mg/dL Total Bilirubin (0.2-1.0) mg/dL AST (15-37) U/L ALT (14-59) U/L Alkaline Phosphatase (46-116) U/L Total Protein (6.4-8.2) g/dl Albumin (3.4-5.0) g/dl Globulin gm/dL Albumin/Globulin Ratio (1-2) Urine Color Yellow (Yellow) Urine Appearance Clear (Clear) Urine pH 6.0 (5.0-8.0) Ur Specific [place] 1.020 (1.005-1.030) Urine Protein Negative (Negative) Urine Glucose (UA) Negative (Negative) Urine Ketones Negative (Negative) Urine Occult Blood 3+ H (Negative) Urine Nitrite Negative (Negative) Urine Bilirubin Negative (Negative) Urine Urobilinogen 0.2 (0.2-1.0) Ur Leukocyte Esterase Negative (Negative) U Hyaline Cast (Auto) 0-5 (0-5) /lpf Urine RBC 10-20 H (0-5) /hpf Urine WBC Not seen (0-5) /hpf Ur Squamous Epith Cells 0-5 (0-5) /hpf Urine Bacteria Few (FEW) /hpf Urine Mucus Few (FEW) /hpf Urine HCG, Qual Negative (NEGATIVE) 07/06/21 Range/Units 21:55 WBC (3.98-10.04) K/mm3 RBC (3.98-5.22) M/mm3 Hgb (11.2-15.7) gm/dl Hct (34.1-44.9) % MCV (79.4-94.8) fl MCH (25.6-32.2) pg MCHC (32.2-35.5) g/dl RDW Std Deviation (36.4-46.3) fL Plt Count (182-369) K/mm3 MPV (9.4-12.3) fl Neut % (Auto) (34.0-71.1) % Lymph % (Auto) (19.3-51.7) % Lipscomb % (Auto) (4.7-12.5) % Eos % (Auto) (0.7-5.8) Baso % (Auto) (0.1-1.2) % Neut # (Auto) (1.56-6.13) K/mm3 Lymph # (Auto) (1.18-3.74) K/mm3 Lipscomb # (Auto) (0.24-0.36) K/mm3 Eos # (Auto) (0.04-0.36) K/mm3 Baso # (Auto) (0.01-0.08) K/mm3 Sodium 143 (136-145) mEq/L Potassium 3.9 (3.5-5.1) mEq/L Chloride 107 (98-107) mEq/L Carbon Dioxide 23 (21-32) mEq/L Anion Gap 16.9 H (5-15) BUN 9 (7-18) mg/dL Creatinine 0.8 (0.55-1.02) mg/dL Est Cr Clr Drug Dosing 94.44 mL/min Estimated GFR (MDRD) > 60 (>60) mL/min BUN/Creatinine Ratio 11.3 L (14-18) Glucose 136 H (70-99) mg/dL Calcium 8.9 (8.5-10.1) mg/dL Magnesium 1.8 (1.8-2.4) mg/dL Total Bilirubin 0.2 (0.2-1.0) mg/dL AST 40 H (15-37) U/L ALT 79 H (14-59) U/L Alkaline Phosphatase 59 (46-116) U/L Total Protein 7.3 (6.4-8.2) g/dl Albumin 3.4 (3.4-5.0) g/dl Globulin 3.9 gm/dL Albumin/Globulin Ratio 0.9 L (1-2) Urine Color (Yellow) Urine Appearance (Clear) Urine pH (5.0-8.0) Ur Specific [place] (1.005-1.030) Urine Protein (Negative) Urine Glucose (UA) (Negative) Urine Ketones (Negative) Urine Occult Blood (Negative) Urine Nitrite (Negative) Urine Bilirubin (Negative) Urine Urobilinogen (0.2-1.0) Ur Leukocyte Esterase (Negative) U Hyaline Cast (Auto) (0-5) /lpf Urine RBC (0-5) /hpf Urine WBC (0-5) /hpf Ur Squamous Epith Cells (0-5) /hpf Urine Bacteria (FEW) /hpf Urine Mucus (FEW) /hpf Urine HCG, Qual (NEGATIVE) Meds: Medications Generic Name Dose Route Start Last Admin Trade Name Freq PRN Reason Stop Dose Admin Sodium Chloride 10 ml 07/06/21 21:17 07/06/21 21:48 Sodium Chloride 0.9% 10 Ml Syringe FLUSH 10 ml ASDIRECTED PRN Administration Keep Vein Open Discontinued Medications Generic Name Dose Route Start Last Admin Trade Name Freq PRN Reason Stop Dose Admin Sodium Chloride 1,000 mls @ 999 mls/hr 07/06/21 21:17 07/06/21 21:51 Normal Saline IV 07/06/21 22:17 999 mls/hr ONETIME ONE Administration Ketorolac Tromethamine 30 mg 07/06/21 21:17 07/06/21 21:46 Ketorolac 30 Mg/Ml Sdv IVPUSH 07/06/21 21:18 30 mg ONETIME ONE Administration Ondansetron HCl 4 mg 07/06/21 21:17 07/06/21 21:44 Ondansetron 4 Mg/2 Ml Sdv IVPUSH 07/06/21 21:18 4 mg ONETIME ONE Administration - Re-Assessments/Exams Free Text/Narrative Re-Assessment/Exam: 07/07/21 00:22 Case received from Hortencia Bullard NP. I agree with her history and physical exam as documented. CT of the abdomen and pelvis without contrast is read by Tammi as "Lobe burden nonobstructing right nephrolithiasis. No ureteral stones. Subtle right hydronephrosis and hydroureter could be due to a recently passed stone." 07/07/21 00:28 Test results discussed with the patient. As above, it appears that the patient already passed the stone. She agreed, believing that she likely passed it when she gave us her urine sample earlier. I will discharge her home with the recommendation that she take OTC ibuprofen around the clock as needed for discomfort. She will be provided with prescriptions for [place], tamsulosin, and Zofran. She should stay adequately hydrated. Because the CT scan did not demonstrate the stone in her bladder, there is no point in her straining her urine. Departure - Departure Time of Disposition: 00:35 Condition: Good - Discharge Information *PRESCRIPTION DRUG MONITORING PROGRAM REVIEWED*: Not Applicable *COPY OF PRESCRIPTION DRUG MONITORING REPORT IN PATIENT ELIZABETH: Not Applicable Sepsis Event Note (ED) - Focused Exam Vital Signs: Vital Signs Temp Pulse Resp BP Pulse Ox 07/06/21 21:08 36.1 C 79 16 166/137 H 99
[2021-07-07] MEDS ORDERED: Tamsulosin 0.4 MG Cap.ER PO ONE (00:38)
--- NOTE | 2021-07-07 07:54 | CT ---
CT abdomen and pelvis Technique: Multiple axial sections through the abdomen and pelvis were obtained. Study has been performed as a ureteral stone protocol. Reconstructed coronal and sagittal images were obtained. Comparison: Prior abdominal and pelvic CT exam of 12/17/19. Findings: Two small calculi are noted within the right kidney compatible with small nonobstructing calculi. Left kidney shows no abnormal calcifications. Right ureter is minimally prominent as compared to the left side. No abnormal calcifications are noted within the right ureter. Please correlate if patient's condition has improved making this compatible with recent stone passage. Visualized lung bases show nothing acute. Liver shows mild fatty infiltration. No focal abnormality is appreciated within the liver. Spleen size appears normal. Pancreas shows no discrete abnormality. Adrenal glands show no nodule. Surgical clips are noted from prior cholecystectomy. Abdominal aorta shows no aneurysm. Mild scattered lymph nodes are seen within the retroperitoneum which are stable from prior exam. Small mesenteric lymph nodes are seen which also appear stable. Appendix is seen which is normal in size. No pelvic mass or adenopathy is seen. Bone window settings were reviewed. No acute osseous abnormality is appreciated. Impression: 1. Slightly prominent right ureter with no abnormal calcifications. Please correlate if patient's symptoms have improved suggesting recent passage of right ureteral stone. 2. Two nonobstructing renal stones within the right kidney. 3. Other findings as noted above which are more chronic. Diagnostic code #3 I agree with preliminary report from [facility], finalized on 07/07/21, 1:08 AM CDT, code 1
== END 2021-07-07 00:54 | disposition home or self-care (01) ==
LOC: JD.ED 20:47
DX: N20.1 Calculus of ureter (principal); I10 Essential (primary) hypertension; E66.9 Obesity, unspecified; Z68.43 Body mass index [BMI] 50.0-59.9, adult; Z88.0 Allergy status to penicillin
CPT/HCPCS: 36415; 74176; 80053; 81001; 81025; 83735; 85025; 96374; 96375; 99284; A9270; J1885; J2405; J7030

== ENCOUNTER 2023-06-29 18:15 | Day surgery (SDC) | payer MEDICAID ==
[2023-06-29] MEDS ORDERED: HYDROmorphone 0.5 MG/0.5 ML Syringe IVPUSH ONE (18:49)
[2023-06-29] MEDS ORDERED: Ondansetron 4 MG/2 ML SDV IVPUSH ONE (18:49)
[2023-06-29] MEDS ORDERED: Sodium Chloride 0.9% 10 ML Syringe FLUSH PRN (18:49)
[2023-06-29] MEDS ORDERED: HYDROmorphone 1 MG/ML Syringe IM ONE (19:02)
[2023-06-29] MEDS ORDERED: Ondansetron 4 MG Tab.DIS PO ONE (19:03)
[2023-06-29 19:32] LABS: BASOPHILS ABSOLUTE AUTO 0.03 K/mm3 (0.01-0.08); BASOPHILS PERCENT AUTO 0.3 % (0.1-1.2); EOSINOPHILS ABSOLUTE AUTO 0.05 K/mm3 (0.04-0.36); EOSINOPHILS PERCENT AUTO 0.5 (0.7-5.8); HEMATOCRIT 39.9 % (34.1-44.9); HEMOGLOBIN 13.2 gm/dl (11.2-15.7); IMMATURE GRAN ABSOLUTE AUTO 0.02 K/mm3 (0.00-0.10); IMMATURE GRAN PERCENT AUTO 0.2 % (<=1.0); LYMPHOCYTES ABSOLUTE AUTO 2.08 K/mm3 (1.18-3.74); LYMPHOCYTES PERCENT AUTO 19.1 % (19.3-51.7); MEAN CORPUSCULAR HEMOGLOBIN 28.8 pg (25.6-32.2); MEAN CORPUSCULAR HGB CONC 33.1 g/dl (32.2-35.5); MEAN CORPUSCULAR VOLUME 86.9 fl (79.4-94.8); MEAN PLATELET VOLUME 11.2 fl (9.4-12.3); MONOCYTES ABSOLUTE AUTO 0.88 K/mm3 (0.24-0.36); MONOCYTES PERCENT AUTO 8.1 % (4.7-12.5); NEUTROPHILS ABSOLUTE AUTO 7.83 K/mm3 (1.56-6.13); NEUTROPHILS PERCENT AUTO 71.8 % (34.0-71.1); PLATELET COUNT,PLT 239 K/mm3 (182-369); RED BLOOD CELL COUNT 4.59 M/mm3 (3.98-5.22); WHITE BLOOD CELL COUNT,WBC 10.89 K/mm3 (3.98-10.04)
[2023-06-29 19:52] LABS: A/G RATIO 0.7 (1-2); ALBUMIN 3.2 g/dl (3.4-5.0); ANION GAP 13.5 (5-15); BILIRUBIN TOTAL 0.5 mg/dL (0.2-1.0); BUN/CREATININE RATIO 7.8 (14-18); C-REACTIVE PROTEIN 5.8 mg/dL (<1.0); CALCIUM 8.6 mg/dL (8.5-10.1); CREATININE 0.9 mg/dL (0.55-1.02); EST CRCL DRUG DOSING (CG) 82.51 mL/min; POTASSIUM,K 3.5 mEq/L (3.5-5.1); PROTEIN TOTAL,TP 7.8 g/dl (6.4-8.2)
[2023-06-29] MEDS ORDERED: ceFAZolin 2 GM in Sodium Chloride 0.9% 50 ML IV ONE (21:01)
[2023-06-29] MEDS ORDERED: metroNIDAZOLE/Normal Saline 500 MG in Premix Bag 1 BAG IV ONE (21:02)
[2023-06-29] MEDS ORDERED: Lidocaine 1% 30 ML SDV ONE (21:29)
[2023-06-29] MEDS ORDERED: Lactated Ringers 1,000 ML ONE (21:32)
[2023-06-29] MEDS ORDERED: Midazolam 1 MG/ML 2 ML SDV ONE ×2 (21:35→21:36)
[2023-06-29] MEDS ORDERED: metroNIDAZOLE/Normal Saline 100 ML ONE (21:35)
[2023-06-29] MEDS ORDERED: Lidocaine 1% 5 ML VIAL ONE (21:35)
[2023-06-29] MEDS ORDERED: Propofol 200 MG/20 ML SDV ONE (21:35)
[2023-06-29] MEDS ORDERED: fentaNYL 100 MCG/2 ML SDV ONE (21:35)
[2023-06-29] MEDS ORDERED: Ketamine 500 mg/10 ML MDV ONE (21:36)
[2023-06-29] MEDS ORDERED: Lactated Ringers 1,000 ML IV SCH (21:45)
[2023-06-29] MEDS ORDERED: ceFAZolin 2 GM Vial ONE ×2 (21:45→22:14)
[2023-06-29] MEDS ORDERED: Bupivacaine 0.5%/EPINEPHrine 1:200,000 50 ML MDV ONE (21:54)
[2023-06-29] MEDS ORDERED: Ketorolac 30 MG/ML SDV ONE (22:14)
[2023-06-29] MEDS ORDERED: Acetaminophen/HYDROcodone 325-5 MG Tab PO ONE (22:57)
[2023-06-30 00:13] VITALS: BP 142/81; PULSE 89
== END 2023-06-29 23:35 | disposition home or self-care (01) ==
LOC: JD.ED 18:15 → JD.SDS 21:01
PROVIDERS: ATTEND Specialist
DX: K61.1 Rectal abscess (principal); I10 Essential (primary) hypertension; K76.0 Fatty (change of) liver, not elsewhere classified; K58.9 Irritable bowel syndrome, unspecified; E66.9 Obesity, unspecified; D64.9 Anemia, unspecified; F32.A Depression, unspecified; F41.9 Anxiety disorder, unspecified; K21.9 Gastro-esophageal reflux disease without esophagitis; Z88.0 Allergy status to penicillin; Z79.899 Other long term (current) drug therapy; Z90.49 Acquired absence of other specified parts of digestive tract; Z68.43 Body mass index [BMI] 50.0-59.9, adult
CPT/HCPCS: 36415; 46050; 76872; 80053; 85025; 86140; A9270; J0690; J1170; J1885; J2250; J2704; J3010; J3490; J7120

== ENCOUNTER 2023-06-30 19:23 | Emergency (ER) | payer MEDICAID ==
[2023-06-30] MEDS ORDERED: Ondansetron 4 MG Tab.DIS PO ONE (20:57)
[2023-06-30] MEDS ORDERED: HYDROmorphone 1 MG/ML Syringe IM ONE (20:57)
[2023-06-30 22:06] VITALS: BP 151/96; PULSE 102
== END 2023-06-30 22:00 | disposition home or self-care (01) ==
LOC: JD.ED 19:23
DX: K62.89 Other specified diseases of anus and rectum (principal); G89.18 Other acute postprocedural pain; I10 Essential (primary) hypertension; E66.9 Obesity, unspecified; Z68.43 Body mass index [BMI] 50.0-59.9, adult; Z88.1 Allergy status to other antibiotic agents; Z79.899 Other long term (current) drug therapy
CPT/HCPCS: 96372; 99283; A9270; J1170

== ENCOUNTER 2023-08-12 12:27 | Day surgery (SDC) | payer MEDICAID ==
[2023-08-12] MEDS ORDERED: Sodium Chloride 0.9% 10 ML Syringe FLUSH PRN (14:58)
[2023-08-12] MEDS ORDERED: Iopamidol 612 MG/ML 30 ML SDV IVPUSH ONE (15:06)
[2023-08-12] MEDS ORDERED: Sodium Chloride 0.9% 10 ML Syringe FLUSH ONE (15:06)
[2023-08-12] MEDS ORDERED: Sodium Chloride 0.9% 100 ML IV SCH (15:15)
[2023-08-12 15:44] LABS: BASOPHILS ABSOLUTE AUTO 0.1 K/mm3 (0.0-0.2); BASOPHILS PERCENT AUTO 0.6 % (0.0-1.0); EOSINOPHILS ABSOLUTE AUTO 0.1 K/mm3 (0.0-0.4); HEMATOCRIT 43.5 % (37.0-47.0); HEMOGLOBIN 14.6 gm/dl (12.0-16.0); IMMATURE GRAN ABSOLUTE AUTO 0.01 K/mm3 (0.00-0.05); IMMATURE GRAN PERCENT AUTO 0.1 % (0.0-0.4); LYMPHOCYTES ABSOLUTE AUTO 2.7 K/mm3 (1.0-4.8); LYMPHOCYTES PERCENT AUTO 28.6 % (24.0-44.0); MEAN CORPUSCULAR HEMOGLOBIN 29.4 pg (28.0-32.0); MEAN CORPUSCULAR HGB CONC 33.6 g/dl (32.0-36.0); MEAN CORPUSCULAR VOLUME 87.5 fl (83.0-99.0); MEAN PLATELET VOLUME 10.8 fl (9.4-12.3); MONOCYTES ABSOLUTE AUTO 0.6 K/mm3 (0.0-0.8); MONOCYTES PERCENT AUTO 6.8 % (0.0-8.0); NEUTROPHILS PERCENT AUTO 62.9 % (41.0-71.0); PLATELET COUNT,PLT 249 K/mm3 (150-400); RED BLOOD CELL COUNT 4.97 M/mm3 (4.10-5.30); WHITE BLOOD CELL COUNT,WBC 9.47 K/mm3 (3.9-11.3)
[2023-08-12 16:10] LABS: A/G RATIO 0.8 (1-2); ALBUMIN 3.7 g/dl (3.4-5.0); ANION GAP 15.5 (5-15); BILIRUBIN TOTAL 0.6 mg/dL (0.2-1.0); BUN/CREATININE RATIO 7.1 (14-18); C-REACTIVE PROTEIN 1.5 mg/dL (<1.0); CALCIUM 9.1 mg/dL (8.5-10.1); CREATININE 0.7 mg/dL (0.55-1.02); EST CRCL DRUG DOSING (CG) 105.17 mL/min; PROTEIN TOTAL,TP 8.4 g/dl (6.4-8.2)
[2023-08-12 16:13] LABS: POTASSIUM,K 3.5 mEq/L (3.5-5.1)
[2023-08-12] MEDS ORDERED: fentaNYL 100 MCG/2 ML SDV ONE (17:07)
[2023-08-12] MEDS ORDERED: Midazolam 1 MG/ML 2 ML SDV ONE ×2 (17:07→17:37)
[2023-08-12] MEDS ORDERED: Lidocaine 1% 5 ML VIAL ONE (17:07)
[2023-08-12] MEDS ORDERED: Propofol 200 MG/20 ML SDV ONE ×2 (17:08→17:54)
[2023-08-12] MEDS ORDERED: Ketamine 500 mg/10 ML MDV ONE (17:09)
[2023-08-12] MEDS ORDERED: Ketorolac 30 MG/ML SDV ONE (17:10)
[2023-08-12] MEDS ORDERED: Bupivacaine 0.5%/EPINEPHrine 1:200,000 50 ML MDV ONE (17:12)
[2023-08-12] MEDS ORDERED: Lidocaine 1% 30 ML SDV ONE (17:13)
[2023-08-12] MEDS ORDERED: HYDROmorphone 0.5 MG/0.5 ML Syringe IVPUSH PRN (18:16)
[2023-08-12] MEDS ORDERED: fentaNYL 100 MCG/2 ML SDV IVPUSH PRN (18:16)
[2023-08-12] MEDS ORDERED: Ondansetron 4 MG/2 ML SDV IVPUSH PRN (18:16)
[2023-08-12 19:39] VITALS: BP 149/91; PULSE 94
== END 2023-08-12 19:13 | disposition home or self-care (01) ==
LOC: JD.ED 12:27 → JD.SDS 16:56
PROVIDERS: ATTEND Surgery
DX: K61.2 Anorectal abscess (principal); K64.8 Other hemorrhoids; I10 Essential (primary) hypertension; K76.0 Fatty (change of) liver, not elsewhere classified; K21.9 Gastro-esophageal reflux disease without esophagitis; K58.9 Irritable bowel syndrome, unspecified; F41.9 Anxiety disorder, unspecified; F32.A Depression, unspecified; E66.01 Morbid (severe) obesity due to excess calories; Z88.0 Allergy status to penicillin; Z79.899 Other long term (current) drug therapy
CPT/HCPCS: 36415; 45990; 80053; 84703; 85025; 86140; J1885; J2250; J2704; J3010; J3490; 00902; 99140; 99284

== ENCOUNTER 2024-07-06 02:56 | Emergency (ER) | payer MEDICAID ==
[2024-07-06 03:15] VITALS: BP 145/101; PULSE 116
== END 2024-07-06 04:06 | disposition home or self-care (01) ==
LOC: JD.ED 02:56
DX: M26.621 Arthralgia of right temporomandibular joint (principal); M79.18 Myalgia, other site; I10 Essential (primary) hypertension; E66.9 Obesity, unspecified; Z88.0 Allergy status to penicillin; Z88.8 Allergy status to other drugs, medicaments and biological substances; Z79.899 Other long term (current) drug therapy; Z90.49 Acquired absence of other specified parts of digestive tract; Z68.44 Body mass index [BMI] 60.0-69.9, adult
CPT/HCPCS: 99283

== ENCOUNTER 2024-07-17 10:31 | Emergency (ER) | payer MEDICAID ==
[2024-07-17] MEDS: Metoclopramide 10 MG/2 ML SDV IVPUSH ONE (11:02)
[2024-07-17] MEDS: Dextrose 5%-0.9% NaCl 1,000 ML IV SCH (11:02)
[2024-07-17] MEDS: HYDROmorphone 1 MG/ML Syringe IVPUSH ONE (11:03)
[2024-07-17] MEDS: HYDROmorphone 0.5 MG/0.5 ML Syringe IVPUSH ONE (13:43)
[2024-07-17 15:26] VITALS: BP 135/87; PULSE 82
== END 2024-07-17 15:20 | disposition home or self-care (01) ==
LOC: JD.ED 10:31
DX: N23 Unspecified renal colic (principal); I10 Essential (primary) hypertension; E66.9 Obesity, unspecified; Z68.44 Body mass index [BMI] 60.0-69.9, adult; Z90.49 Acquired absence of other specified parts of digestive tract; Z79.899 Other long term (current) drug therapy; Z88.0 Allergy status to penicillin; Z88.5 Allergy status to narcotic agent
CPT/HCPCS: 74176; 96361; 96374; 96375; 99284; J1170; J2765; J7042

== ENCOUNTER 2024-07-20 05:40 | Emergency (ER) | payer MEDICAID ==
[2024-07-20 06:18] LABS: BASOPHILS PERCENT AUTO 0.4 % (0.0-1.0); EOSINOPHILS ABSOLUTE AUTO 0.1 K/mm3 (0.0-0.4); EOSINOPHILS PERCENT AUTO 0.5 % (0.0-6.0); HEMATOCRIT 41.3 % (37.0-47.0); HEMOGLOBIN 13.6 gm/dl (12.0-16.0); IMMATURE GRAN ABSOLUTE AUTO 0.04 K/mm3 (0.00-0.05); IMMATURE GRAN PERCENT AUTO 0.4 % (0.0-0.4); LYMPHOCYTES ABSOLUTE AUTO 2.2 K/mm3 (1.0-4.8); LYMPHOCYTES PERCENT AUTO 21.8 % (24.0-44.0); MEAN CORPUSCULAR HGB CONC 32.9 g/dl (32.0-36.0); MEAN CORPUSCULAR VOLUME 85.2 fl (83.0-99.0); MEAN PLATELET VOLUME 11.3 fl (9.4-12.3); MONOCYTES ABSOLUTE AUTO 0.8 K/mm3 (0.0-0.8); MONOCYTES PERCENT AUTO 8.4 % (0.0-8.0); NEUTROPHILS ABSOLUTE AUTO 6.8 K/mm3 (1.8-7.7); NEUTROPHILS PERCENT AUTO 68.5 % (41.0-71.0); PLATELET COUNT,PLT 211 K/mm3 (150-400); RED BLOOD CELL COUNT 4.85 M/mm3 (4.10-5.30); WHITE BLOOD CELL COUNT,WBC 9.88 K/mm3 (3.9-11.3)
[2024-07-20] MEDS: Tamsulosin 0.4 MG Cap.ER PO ONE (06:21)
[2024-07-20] MEDS: HYDROmorphone 0.5 MG/0.5 ML Syringe IVPUSH ONE (06:21)
[2024-07-20] MEDS: Ondansetron 4 MG/2 ML SDV IVPUSH ONE (06:22)
[2024-07-20] MEDS: Ketorolac 30 MG/ML SDV IVPUSH ONE (06:22)
[2024-07-20] MEDS: Sodium Chloride 0.9% 10 ML Syringe FLUSH PRN (06:22)
[2024-07-20] MEDS: Sodium Chloride 0.9% 1,000 ML IV STA (06:22)
[2024-07-20 06:40] LABS: A/G RATIO 0.8 (1-2); ALBUMIN 3.6 g/dl (3.4-5.0); ANION GAP 13.6 (5-15); BILIRUBIN TOTAL 0.9 mg/dL (0.2-1.0); CALCIUM 9.2 mg/dL (8.5-10.1); CREATININE 1.5 mg/dL (0.55-1.02); EST CRCL DRUG DOSING (CG) 49.67 mL/min; POTASSIUM,K 3.6 mEq/L (3.5-5.1); PROTEIN TOTAL,TP 8.2 g/dl (6.4-8.2)
[2024-07-20 07:26] VITALS: BP 128/76; PULSE 79
== END 2024-07-20 07:25 | disposition home or self-care (01) ==
LOC: JD.ED 05:40
DX: N20.1 Calculus of ureter (principal); N23 Unspecified renal colic; I10 Essential (primary) hypertension; E66.9 Obesity, unspecified; Z90.49 Acquired absence of other specified parts of digestive tract; Z79.899 Other long term (current) drug therapy; Z88.5 Allergy status to narcotic agent; Z88.0 Allergy status to penicillin
CPT/HCPCS: 36415; 74018; 80053; 83690; 85025; 96361; 96374; 96375; 99284; A9270; J1170; J1885; J2405; J3490; J7030

== ENCOUNTER 2025-01-14 16:37 | Emergency (ER) | payer MEDICAID ==
[2025-01-14] MEDS: Acetaminophen 325 MG Tab PO ONE (18:17)
[2025-01-14 18:36] LABS: BASOPHILS ABSOLUTE AUTO 0.1 K/mm3 (0.0-0.2); BASOPHILS PERCENT AUTO 0.6 % (0.0-1.0); EOSINOPHILS ABSOLUTE AUTO 0.2 K/mm3 (0.0-0.4); EOSINOPHILS PERCENT AUTO 1.4 % (0.0-6.0); HEMATOCRIT 47.1 % (37.0-47.0); HEMOGLOBIN 15.3 gm/dl (12.0-16.0); IMMATURE GRAN ABSOLUTE AUTO 0.05 K/mm3 (0.00-0.05); IMMATURE GRAN PERCENT AUTO 0.5 % (0.0-0.4); LYMPHOCYTES ABSOLUTE AUTO 2.7 K/mm3 (1.0-4.8); LYMPHOCYTES PERCENT AUTO 25.3 % (24.0-44.0); MEAN CORPUSCULAR HEMOGLOBIN 27.7 pg (28.0-32.0); MEAN CORPUSCULAR HGB CONC 32.5 g/dl (32.0-36.0); MEAN CORPUSCULAR VOLUME 85.2 fl (83.0-99.0); MEAN PLATELET VOLUME 10.6 fl (9.4-12.3); MONOCYTES ABSOLUTE AUTO 1.1 K/mm3 (0.0-0.8); MONOCYTES PERCENT AUTO 9.8 % (0.0-8.0); NEUTROPHILS ABSOLUTE AUTO 6.7 K/mm3 (1.8-7.7); NEUTROPHILS PERCENT AUTO 62.4 % (41.0-71.0); PLATELET COUNT,PLT 294 K/mm3 (150-400); RED BLOOD CELL COUNT 5.53 M/mm3 (4.10-5.30); WHITE BLOOD CELL COUNT,WBC 10.78 K/mm3 (3.9-11.3)
[2025-01-14] MEDS: Lactated Ringers 1,000 ML IV ONE ×2 (18:37→19:51)
[2025-01-14] MEDS: Ketorolac 30 MG/ML SDV IVPUSH ONE (18:38)
[2025-01-14] MEDS: Ondansetron 4 MG/2 ML SDV IVPUSH ONE (18:38)
[2025-01-14 18:40] LABS: APPEARANCE,URINE CLEAR (Clear); BILIRUBIN,URINE NEGATIVE (Negative); COLOR,URINE YELLOW (Yellow); GLUCOSE,URINE NEGATIVE (Negative); KETONES,URINE NEGATIVE (Negative); LEUKOCYTE ESTERASE,URINE NEGATIVE (Negative); NITRITE,URINE NEGATIVE (Negative); OCCULT BLOOD,URINE NEGATIVE (Negative); PH,URINE 6.5 (5.0-8.0); PROTEIN,URINE 1+ (Negative); UROBILINOGEN,URINE 0.2 (0.2-1.0)
[2025-01-14 19:01] LABS: BARBITURATE SCREEN,URINE NEGATIVE (CUTOFF=200); BENZODIAZEPINES SCREEN,URINE NEGATIVE (CUTOFF=150); BUPRENORPHINE SCREEN,URINE NEGATIVE (CUTOFF=10); METHADONE SCREEN, URINE NEGATIVE (CUTOFF=200); METHAMPHETAMINES SCREEN, URINE NEGATIVE (CUTOFF=500); OXYCODONE SCREEN,URINE NEGATIVE (CUT0FF=100); THC SCREEN,URINE 20 NG/ML NEGATIVE (CUTOFF=50)
[2025-01-14 19:04] LABS: A/G RATIO 0.7 (1-2); ALBUMIN 3.7 g/dl (3.4-5.0); ANION GAP 15.3 (5-15); BILIRUBIN TOTAL 0.5 mg/dL (0.2-1.0); CALCIUM 9.1 mg/dL (8.5-10.1); EST CRCL DRUG DOSING (CG) 76.04 mL/min; POTASSIUM,K 3.3 mEq/L (3.5-5.1)
[2025-01-14 19:19] LABS: AMPHETAMINES SCREEN, URINE NEGATIVE (CUTOFF=500)
[2025-01-14 19:21] LABS: BACTERIA,URINE FEW /hpf (FEW); MUCUS,URINE MODERATE /hpf (FEW); RBC,URINE 0-5 /hpf (0-5); WBC,URINE 0-5 /hpf (0-5)
[2025-01-14] MEDS ORDERED: Sodium Chloride 0.9% 10 ML Syringe FLUSH PRN (19:46)
[2025-01-14 21:12] VITALS: BP 128/89; PULSE 80
== END 2025-01-14 21:14 | disposition home or self-care (01) ==
LOC: JD.ED 16:37
DX: R10.9 Unspecified abdominal pain (principal); I10 Essential (primary) hypertension; Z90.49 Acquired absence of other specified parts of digestive tract; Z88.0 Allergy status to penicillin; Z88.5 Allergy status to narcotic agent; Z79.899 Other long term (current) drug therapy
CPT/HCPCS: 36415; 80053; 80306; 81001; 81025; 83690; 85025; 96374; 96375; 99284; A9270; J1885; J2405; J7120

== ENCOUNTER 2025-02-24 09:13 | Emergency (ER) | payer MEDICAID ==
[2025-02-24 09:34] VITALS: BP 159/101; PULSE 104
[2025-02-24 11:13] LABS: BASOPHILS PERCENT AUTO 0.5 % (0.0-1.0); EOSINOPHILS ABSOLUTE AUTO 0.1 K/mm3 (0.0-0.4); EOSINOPHILS PERCENT AUTO 0.7 % (0.0-6.0); HEMATOCRIT 42.3 % (37.0-47.0); HEMOGLOBIN 14.1 gm/dl (12.0-16.0); IMMATURE GRAN ABSOLUTE AUTO 0.02 K/mm3 (0.00-0.05); IMMATURE GRAN PERCENT AUTO 0.2 % (0.0-0.4); LYMPHOCYTES PERCENT AUTO 23.6 % (24.0-44.0); MEAN CORPUSCULAR HEMOGLOBIN 28.3 pg (28.0-32.0); MEAN CORPUSCULAR HGB CONC 33.3 g/dl (32.0-36.0); MEAN CORPUSCULAR VOLUME 84.8 fl (83.0-99.0); MEAN PLATELET VOLUME 10.4 fl (9.4-12.3); MONOCYTES ABSOLUTE AUTO 0.5 K/mm3 (0.0-0.8); MONOCYTES PERCENT AUTO 6.5 % (0.0-8.0); NEUTROPHILS ABSOLUTE AUTO 5.7 K/mm3 (1.8-7.7); NEUTROPHILS PERCENT AUTO 68.5 % (41.0-71.0); PLATELET COUNT,PLT 234 K/mm3 (150-400); RED BLOOD CELL COUNT 4.99 M/mm3 (4.10-5.30); WHITE BLOOD CELL COUNT,WBC 8.28 K/mm3 (3.9-11.3)
[2025-02-24] MEDS ORDERED: Insulin Glargine,Human Rec. Analog 100 Units/ML 3 ML Pen SUBCUT ONE (11:18)
[2025-02-24 11:39] LABS: A/G RATIO 0.7 (1-2); ALANINE AMINOTRANSFERASE,ALT 24 U/L (14-59); ALBUMIN 3.4 g/dl (3.4-5.0); ALKALINE PHOSPHATASE 77 U/L (46-116); ANION GAP 15.5 (5-15); ASPARTATE AMNIOTRANSFERASE,AST 19 U/L (15-37); BILIRUBIN TOTAL 0.6 mg/dL (0.2-1.0); BLOOD UREA NITROGEN,BUN 10 mg/dL (7-18); BUN/CREATININE RATIO 12.5 (14-18); CALCIUM 9.5 mg/dL (8.5-10.1); CARBON DIOXIDE,CO2 22 mEq/L (21-32); CHLORIDE,CL 106 mEq/L (98-107); CREATININE 0.8 mg/dL (0.55-1.02); EST CRCL DRUG DOSING (CG) 91.21 mL/min; ESTIMATED GFR 104 mL/min (>60); GLUCOSE RANDOM 91 mg/dL (70-99); MAGNESIUM 1.6 mg/dL (1.8-2.4); POTASSIUM,K 3.5 mEq/L (3.5-5.1); SODIUM,NA 140 mEq/L (136-145)
[2025-02-24 11:40] LABS: TROPONIN I HIGH SENSITIVITY < 4 pg/mL (<=51)
== END 2025-02-24 12:10 | disposition home or self-care (01) ==
LOC: JD.ED 09:13
DX: R07.89 Other chest pain (principal); M26.629 Arthralgia of temporomandibular joint, unspecified side; M79.18 Myalgia, other site; I10 Essential (primary) hypertension; E66.9 Obesity, unspecified; Z88.0 Allergy status to penicillin; Z88.1 Allergy status to other antibiotic agents; Z88.8 Allergy status to other drugs, medicaments and biological substances; Z79.899 Other long term (current) drug therapy; Z90.49 Acquired absence of other specified parts of digestive tract; Z68.43 Body mass index [BMI] 50.0-59.9, adult
CPT/HCPCS: 36415; 71045; 71045-26; 80053; 83735; 84484; 85025; 93005; 93010; 99284; 99285

== ENCOUNTER 2025-06-03 07:59 | Day surgery (SDC) | payer MEDICAID ==
[~2025-06-03 07:59] MED LIST changes: -Bupivacaine 0.5%/EPINEPHrine 1:200,000 50 ML MDV ONE; -Dexamethasone 4 MG/ML 5 ML MDV ONE; -HYDROmorphone 0.5 MG/0.5 ML Syringe IVPUSH PRN; -Ketamine 500 mg/10 ML MDV ONE; -Ketorolac 30 MG/ML SDV ONE; -Lactated Ringers 1,000 ML IV SCH; -Lidocaine 1% 4 ML ONE; -Lidocaine 1%/Sod Bicarbonate in NS 8.4% 1 ML Syringe IDERM PRN; -Morphine 10 MG/ML SDV ONE; -Neostigmine Methylsulfate 1 MG/ML 5 ML Syringe ONE; -Ondansetron 4 MG/2 ML SDV IVPUSH PRN; -Ondansetron 4 MG/2 ML SDV ONE; -Propofol 200 MG/20 ML SDV ONE; -Rocuronium 100 MG/10 ML MDV ONE; +Sodium Chloride 0.9% 10 ML Syringe FLUSH SCH; -fentaNYL 100 MCG/2 ML SDV IVPUSH PRN; -fentaNYL 250 MCG/5 ML SDV ONE; -oxyCODONE 5 MG Tab PO PRN
[2025-06-03] MEDS: Lactated Ringers 1,000 ML IV SCH (08:39)
[2025-06-03] MEDS ORDERED: Propofol 200 MG/20 ML SDV ONE (09:05)
[2025-06-03 10:31] VITALS: BP 127/99; PULSE 90
== END 2025-06-03 09:29 | disposition home or self-care (01) ==
LOC: JD.SDS 07:59
PROVIDERS: ATTEND Surgery
DX: K29.80 Duodenitis without bleeding (principal); K29.50 Unspecified chronic gastritis without bleeding; K44.9 Diaphragmatic hernia without obstruction or gangrene; K21.9 Gastro-esophageal reflux disease without esophagitis; E66.01 Morbid (severe) obesity due to excess calories; I10 Essential (primary) hypertension; F32.A Depression, unspecified; F41.9 Anxiety disorder, unspecified; D64.9 Anemia, unspecified; F17.200 Nicotine dependence, unspecified, uncomplicated; Z88.1 Allergy status to other antibiotic agents; Z88.6 Allergy status to analgesic agent; Z88.8 Allergy status to other drugs, medicaments and biological substances; Z79.899 Other long term (current) drug therapy
CPT/HCPCS: 43239; J2003; J2704; J7120; 00731